=== PATIENT | female | born 1975 | race Caucasian/White ===

== ENCOUNTER 2017-05-14 09:25 | Inpatient (IN) | payer OTHER ==
--- NOTE | 2017-05-14 09:31 | PDOC ---
History of Present Illness - General Chief Complaint: Vomiting/Diarrhea Stated Complaint: N/V/D Time Seen by Provider: 05/14/17 09:27 History Source: Patient Exam Limitations: No Limitations - History of Present Illness Initial Comments: 05/14/17 09:30 This is a 42 yo F who presents to the ER with a complaint of nausea, vomiting, diarrhea Patient states she was brought into the emergency department due to lightheadedness, dizziness, weakness. Her symptoms began this past weekend. She states she was out with her children at a park, had several bug bites. 2 days ago, on Friday, she took Benadryl, and was given Claritin. She states this made her drowsy and she was unable to work, she went home early. Over the past 2 days she noticed that she is lightheaded and dizzy particularly when standing. She denies preceding chest pain, shortness of breath, palpitation. No focal weakness or numbness. No recent travel No ill contacts She reports vomiting, unable to tell me how many times, non bloody, non bilious , she vomits after attempting to eat or drink She reports diarrhea but is unable to tell me how many times/day (non bloody, non mucoid, she does state that she is not eating so it has not been that frequent) She denies recent antibiotic use The patient states she is able to tolerate water The patient denies fevers but notes night sweats PMH: anxiety, ?neck aneurysms, prior history of HTN (improved with weight loss) PSH: mandibular wires for [place] facial fracture Meds: ALL: PCN, Sulfa Social: Wine daily (1-3 glasses), denies drugs or tobacco, works at [employer] GENERAL/CONSTITUTIONAL: Yes: fatigue and weakness, loss of appetite No: fever, chills. HEAD, EYES, EARS, NOSE AND THROAT: No: change in vision, ear pain, discharge, sore throat, throat swelling. CARDIOVASCULAR: No: chest pain, lightheadedness, palpitations, syncope RESPIRATORY: No: cough, shortness of breath, wheezing, hemoptysis, stridor. GASTROINTESTINAL: Yes: nausea, vomiting, diarrhea No: abdominal pain, rectal bleeding, constipation. GENITOURINARY: No: dysuria, hematuria, frequency, urgency, flank pain. MUSCULOSKELETAL: No: back pain, neck pain, joint pain, muscle swelling or pain SKIN AND BREASTS: No: lesions, pallor, rash or easy bruising. NEUROLOGIC: No: headache, vertigo, paresthesias, weakness ENDOCRINE: No: unexplained weight gain or loss HEMATOLOGIC/LYMPHATIC: No: anemia, easy bleeding, swelling nodes. GENERAL: The patient is in no acute distress. HEAD: Normal with no signs of trauma. EYES: PERRLA, EOMI, sclera anicteric, conjunctiva clear. ENT: Ears normal, nares patent, oropharynx clear without exudates. Dry mucous membranes. NECK: Normal range of motion, supple without lymphadenopathy, JVD, or masses. LUNGS: Breath sounds equal, clear to auscultation bilaterally. No wheezes, and no crackles. HEART:Regular rate and rhythm, normal S1 and S2 without murmur, rub or gallop. ABDOMEN: Soft, nontender, normoactive bowel sounds. No guarding, no rebound. No masses palpable. EXTREMITIES: Normal range of motion, no edema. No clubbing or cyanosis. No erythema, or tenderness. NEUROLOGICAL: Cranial nerves II through XII grossly intact. Normal speech. No focal neurological deficits. MUSCULOSKELETAL: Back non-tender to palpation, no CVA tenderness SKIN: Warm, Dry, normal turgor, no rashes or lesions noted. 05/14/17 10:39 Past History - Past Medical History Allergies/Adverse Reactions: Allergies Allergy/AdvReac Type Severity Reaction Status Date / Time Penicillins Allergy Verified 05/14/17 09:27 Sulfa (Sulfonamide Allergy Verified 05/14/17 09:27 Antibiotics) Home Medications: Ambulatory Orders Clonazepam [Klonopin] 2 mg PO DAILY PRN 05/08/16 Psychiatric Problems: Yes (ANXIETY) - Suicide/Smoking/Psychosocial Hx Smoking History: Never smoked Hx Alcohol Use: No Drug/Substance Use Hx: No Substance Use Type: None ED Treatment Course - LABORATORY CBC & Chemistry Diagram: 05/14/17 09:37 05/14/17 09:47 Medical Decision Making - Medical Decision Making 05/14/17 10:46 Will do labs Will hydrate Will re assess 05/14/17 10:51 05/14/17 10:51 Laboratory Tests 05/14/17 05/14/17 05/14/17 09:37 09:47 09:47 WBC 2.4 L Hgb 14.1 Hct 42.3 Plt Count 228 MPV 6.2 L Neutrophils % (Manual) 36 L Band Neuts % (Manual) 2 Lymphocytes % (Manual) 48 H Monocytes % (Manual) 14 H Sodium 136 Potassium 3.5 Chloride 100 Carbon Dioxide 25 BUN 6 L Creatinine 0.6 Random Glucose 66 L AST 167 H ALT 109 H Serum , Qual Negative 05/14/17 10:53 ANC = 912 No prior labs available for evaluation Family history non contributory Pt has had decreased po intake due to decreased appetite - ? vitamin B12, folate deficiency Pt uses alcohol daily No history of known autoimmune disorders No h/o HIV Currently taking: Klonipin for anxiety, no other medications No recent illness 05/14/17 10:54 05/14/17 11:22 Laboratory Tests 05/14/17 05/14/17 09:47 10:47 Alkaline Phosphatase 79 Troponin I < 0.03 L 05/14/17 11:28 Labs reviewed with patient I have explained my concern that she her ANC is low and she has slight elevation in LFTs She is deciding on whether to stay or not *DC/Admit/Observation/Transfer Diagnosis at time of Disposition: Weakness - Discharge Dispostion Condition at time of disposition: Stable Admit: Yes
[2017-05-14 09:32] VITALS: BMI 17.2
[2017-05-14] MEDS ORDERED: SODIUM CHLORIDE 1,000 ML IV STA (09:32)
[2017-05-14 09:53] LABS: MCH 33.1 pg (25.7-33.7); MCHC 33.3 g/dl (32.0-36.0); MEAN CELL VOLUME 99.3 fl (80-96); MEAN PLT VOLUME 6.2 fl (7.5-11.1); PLATELET COUNT 228 K/MM3 (134-434); RDW 13.5 % (11.6-15.6); WHITE BLOOD COUNT 2.4 K/mm3 (4.0-10.8)
[2017-05-14 10:13] LABS: ALBUMIN 4.3 g/dl (3.5-5.0); ALK PHOS 79 U/L (32-92); ANION GAP 11 (8-16); BILIRUBIN,TOTAL 0.9 mg/dl (0.2-1.0); CALCIUM 9.1 mg/dl (8.4-10.2); CO2 25 mmol/L (22-28); CREATININE 0.6 mg/dl (0.6-1.3); GLUCOSE,RANDOM 66 mg/dl (74-106); SGOT/AST 167 U/L (10-42); SGPT/ALT 109 U/L (10-40); TOT PROT 7.4 g/dl (6.4-8.3)
[2017-05-14 10:37] LABS: PLATELET ESTIMATE ADEQUATE (NORMAL)
[2017-05-14 12:21] LABS: PH,URINE 5.5 (4.5-8); URINE APPEARANCE Clear; URINE BILIRUBIN Negative (NEGATIVE); URINE GLUCOSE (UA) Negative (NEGATIVE); URINE KETONE 2+ (NEGATIVE); URINE LEUK ESTERASE Negative (NEGATIVE); URINE NITRITE Negative (NEGATIVE); URINE PROTEIN Negative (NEGATIVE); URINE UROBILINOGEN 0.2 (0.2-1.0)
[2017-05-14 12:23] LABS: URINE BLOOD Trace-lysed (NEGATIVE); URINE COLOR YELLOW
[2017-05-14 12:24] LABS: URINE BACTERIA FEW /hpf (NEGATIVE); URINE RBC 0-3 /hpf (0-3); URINE WBC 0-3 (3-5)
--- NOTE | 2017-05-14 13:37 | HP ---
CHIEF COMPLAINT: nausea and vomiting PCP: "I don't have a doctor" HISTORY OF PRESENT ILLNESS: Patient is a 42 y/o female with a past medical history of anxiety. Patient reports lightheadedness, dizziness, and weakness for the past 2 days. She does reports on Friday, 05/12, she was in the park and noticed several insect bites to her lower extremities after returning home. Patient denies any fever. She does [place] Today she reports increased of dizziness with ambulating at home. Patient denies any syncopal episode. ER course was notable for: (1) wbc 2.4 neutrophils 36 manual anc 912 (2) ast/alt 167/109 (3) chest xray Recent Travel: denies any recent travel PAST MEDICAL HISTORY: anxiety, htn (no medications improved with weight loss) PAST SURGICAL HISTORY: surgical repair of [place] facial fracture Social History: , recently mother of 2 children, employed multimedia artist at [employer] Smoking: none Alcohol:drinks 1-3 glasses daily of wine Drugs: denies Family History: Allergies Penicillins Allergy (Verified 05/14/17 09:27) Sulfa (Sulfonamide Antibiotics) Allergy (Verified 05/14/17 09:27) HOME MEDICATIONS: Home Medications Medication Instructions Recorded Clonazepam [Klonopin] 2 mg PO DAILY PRN 05/08/16 REVIEW OF SYSTEMS CONSTITUTIONAL: present:loss of appetite Absent: fever, chills, diaphoresis, generalized weakness, malaise, weight change HEENT: Absent: rhinorrhea, nasal congestion, throat pain, throat swelling, difficulty swallowing, mouth swelling, ear pain, eye pain, visual changes CARDIOVASCULAR: Absent: chest pain, syncope, palpitations, irregular heart rate, lightheadedness , peripheral edema RESPIRATORY: Absent: cough, shortness of breath, dyspnea with exertion, orthopnea, wheezing, stridor, hemoptysis GASTROINTESTINAL: present: nausea, vomiting, diarrhea, Absent: abdominal pain, abdominal distension, constipation, melena, hematochezia GENITOURINARY: Absent: dysuria, frequency, urgency, hesitancy, hematuria, flank pain, genital pain MUSCULOSKELETAL: Absent: myalgia, arthralgia, joint swelling, back pain, neck pain SKIN: Absent: rash, itching, pallor HEMATOLOGIC/IMMUNOLOGIC: Absent: easy bleeding, easy bruising, lymphadenopathy, frequent infections ENDOCRINE: Absent: unexplained weight gain, unexplained weight loss, heat intolerance, cold intolerance NEUROLOGIC: Absent: headache, focal weakness or paresthesias, dizziness, unsteady gait, seizure, mental status changes, bladder or bowel incontinence PSYCHIATRIC: Absent: anxiety, depression, suicidal or homicidal ideation, hallucinations. PHYSICAL EXAMINATION Vital Signs - 24 hr 05/14/17 05/14/17 05/14/17 09:26 09:51 11:56 Temperature 98.7 F Pulse Rate 95 H Pulse Rate [ 95 H Apical] Respiratory 18 Rate Blood Pressure 138/100 138/100 Blood Pressure 124/87 [Right Arm] O2 Sat by Pulse 100 97 Oximetry (%) GENERAL: Awake, alert, and fully oriented, in no acute distress. HEAD: Normal with no signs of trauma. EYES: Pupils equal, round and reactive to light, extraocular movements intact, sclera anicteric, conjunctiva clear. No lid lag. EARS, NOSE, THROAT: Ears normal, nares patent, oropharynx clear without exudates. Moist mucous membranes. NECK: Normal range of motion, supple without lymphadenopathy, JVD, or masses. LUNGS: Breath sounds equal, clear to auscultation bilaterally. No wheezes, and no crackles. No accessory muscle use. HEART: Regular rate and rhythm, normal S1 and S2 without murmur, rub or gallop. ABDOMEN: Soft, nontender, not distended, normoactive bowel sounds, no guarding, no rebound, no masses. No hepatomegaly or splenomegaly. MUSCULOSKELETAL: Normal range of motion at all joints. No bony deformities or tenderness. No CVA tenderness. UPPER EXTREMITIES: 2+ pulses, warm, well-perfused. No cyanosis. No clubbing. No peripheral edema. LOWER EXTREMITIES: 2+ pulses, warm, well-perfused. No calf tenderness. No peripheral edema. NEUROLOGICAL: Cranial nerves II-XII intact. Normal speech. Normal gait. PSYCHIATRIC: Cooperative. Good eye contact. Appropriate mood and affect. SKIN: Warm, dry, normal turgor, no rashes or lesions noted, normal capillary refill. Laboratory Results - last 24 hr 05/14/17 05/14/17 05/14/17 09:37 09:47 09:47 WBC 2.4 L RBC 4.26 Hgb 14.1 Hct 42.3 MCV 99.3 H MCH 33.1 MCHC 33.3 RDW 13.5 Plt Count 228 MPV 6.2 L Neutrophils % No Result Required. Neutrophils % (Manual) 36 L Band Neuts % (Manual) 2 Lymphocytes % No Result Required. Lymphocytes % (Manual) 48 H Monocytes % (Manual) 14 H Platelet Estimate Adequate Sodium 136 Potassium 3.5 Chloride 100 Carbon Dioxide 25 Anion Gap 11 BUN 6 L Creatinine 0.6 Creat Clearance w eGFR > 60 Random Glucose 66 L Calcium 9.1 Total Bilirubin 0.9 AST 167 H ALT 109 H Alkaline Phosphatase 79 Troponin I Total Protein 7.4 Albumin 4.3 Lipase Serum , Qual Negative Urine Color Urine Appearance Urine pH Ur Specific [place] Urine Protein Urine Glucose (UA) Urine Ketones Urine Blood Urine Nitrite Urine Bilirubin Urine Urobilinogen Urine RBC Urine WBC Ur Epithelial Cells Urine Bacteria 05/14/17 05/14/17 05/14/17 09:47 10:47 12:03 WBC RBC Hgb Hct MCV MCH MCHC RDW Plt Count MPV Neutrophils % Neutrophils % (Manual) Band Neuts % (Manual) Lymphocytes % Lymphocytes % (Manual) Monocytes % (Manual) Platelet Estimate Sodium Potassium Chloride Carbon Dioxide Anion Gap BUN Creatinine Creat Clearance w eGFR Random Glucose Calcium Total Bilirubin AST ALT Alkaline Phosphatase Troponin I < 0.03 L Total Protein Albumin Lipase 41 Serum , Qual Urine Color Yellow Urine Appearance Clear Urine pH 5.5 Ur Specific [place] 1.025 Urine Protein Negative Urine Glucose (UA) Negative Urine Ketones 2+ H Urine Blood Trace-lysed H Urine Nitrite Negative Urine Bilirubin Negative Urine Urobilinogen 0.2 Urine RBC 0-3 Urine WBC 0-3 Ur Epithelial Cells Few Urine Bacteria Few ASSESSMENT/PLAN: F/E/N - full liquid diet - replete electrolytes ppx - pepcid - oob - scd dispo: requires observation admission Problem List - Problem (1) Neutropenia Assessment/Plan: - calculated anc 912, no fever noted, likely secondary to gastroenteritis - lymes titer and ehricholis ordered - repeat cbc in am - appreciate input of hematology Code(s): D70.9 - NEUTROPENIA, UNSPECIFIED Qualifiers: Neutropenia type: unspecified Qualified Code(s): D70.9 - Neutropenia , unspecified (2) Elevated liver enzymes Assessment/Plan: - transanimtis secondary to viral vs alcohol use - ultrasound of abdomen ordered - pending hepatitis and liver function panel Code(s): R74.8 - ABNORMAL LEVELS OF OTHER SERUM ENZYMES (3) Anxiety Assessment/Plan: - continue clonopin 2mg home dose, medication verified with environmental property assessor reference # [id number] Code(s): F41.9 - ANXIETY DISORDER, UNSPECIFIED (4) Dizziness Assessment/Plan: - secondary to hypovolemia, continue ivf - orthostatic vital signs Code(s): R42 - DIZZINESS AND GIDDINESS (5) Nausea & vomiting Assessment/Plan: - continue zofran as needed - benign abdominal exam, f/u abd ultrasound Code(s): R11.2 - NAUSEA WITH VOMITING, UNSPECIFIED (6) Alcohol abuse Assessment/Plan: - pt reports she drinkings 1-3 glasses of wine daily - monitor for signs of alcohol withdrawl. Code(s): F10.10 - ALCOHOL ABUSE, UNCOMPLICATED Visit type - Emergency Visit Emergency Visit: Yes ED Registration Date: 05/14/17 Care time: The patient presented to the Emergency Department on the above date and was hospitalized for further evaluation of their emergent condition. - New Patient This patient is new to me today: Yes Date on this admission: 05/14/17 - Critical Care Critical Care patient: No
[2017-05-14] MEDS ORDERED: D5-1/2NS+20 MEQ KCL - 1,000 ML IV SCH (14:00)
[2017-05-14] MEDS ORDERED: FAMOTIDINE 20 MG/50 ML IVPB 50 ML IVPB ONE (14:12)
[2017-05-14] MEDS: FAMOTIDINE 20 MG/50 ML IVPB 50 ML IVPB SCH ×2 (14:17→22:12)
[2017-05-14] MEDS ORDERED: LORazepam 2 MG/ML SDV VIAL ONE ×2 (14:51→17:28)
[2017-05-14] MEDS ORDERED: FOLIC ACID INJECTION - 1 MG, THIAMINE HCL 100 MG, MULTIVIT INJECTION ADULT 10 ML in SOD... IVPB ONE (15:15)
[2017-05-14] MEDS ORDERED: chlordiazePOXIDE HCL 25 MG CAPSULE PO ONE (17:22)
[2017-05-14] MEDS ORDERED: chlordiazePOXIDE HCL 25 MG CAPSULE PO PRN (17:57)
--- NOTE | 2017-05-14 18:08 | HOSP ---
Subjective - Review of Symptoms Events since last encounter: Received a call from CAMILLE Frausto reporting patient is tremulous and anxious. There is concern for alcohol and/or benzo withdrawal. Patient received ativan IVP 1mg in ED but symptoms persist. Ordered an additional 1mg dose of ativan and librium PO 50mg x 1. Also started patient on librium taper. Continue IV fluids. Physical Examination Vital Signs: Vital Signs Temperature 98.9 F 05/14/17 14:46 Pulse Rate 96 H 05/14/17 14:46 Respiratory Rate 18 05/14/17 14:46 Blood Pressure 142/87 05/14/17 14:46 O2 Sat by Pulse Oximetry (%) 98 05/14/17 14:46
[2017-05-14] MEDS ORDERED: SODIUM CHLORIDE 1,000 ML IV SCH (18:15)
--- NOTE | 2017-05-14 18:41 | EKG ---
Test Reason : Blood Pressure : / mmHG Vent. Rate : 103 BPM Atrial Rate : 103 BPM P-R Int : 148 ms QRS Dur : 074 ms QT Int : 354 ms P-R-T Axes : 058 095 080 degrees QTc Int : 463 ms SINUS TACHYCARDIA RIGHTWARD AXIS NO PREVIOUS ECGS AVAILABLE Confirmed by MD JOHN, NEO ([id number]) on 05/14/2017 6:40:32 PM Referred By: JACY MILNER Confirmed By:NEO LOPEZ MD
[2017-05-14] MEDS: chlordiazePOXIDE HCL 25 MG CAPSULE PO SCH (22:12)
[2017-05-15] MEDS: chlordiazePOXIDE HCL 25 MG CAPSULE PO SCH ×4 (06:02→22:12)
[2017-05-15 06:11] LABS: HEP B SURFACE AB Non Reactive (.)
[2017-05-15 09:24] LABS: BASOPHIL 1.1 % (0-2.0); EOSINOPHIL 1.9 % (0-4.5); MCH 34.1 pg (25.7-33.7); MCHC 34.7 g/dl (32.0-36.0); MEAN CELL VOLUME 98.2 fl (80-96); MEAN PLT VOLUME 6.6 fl (7.5-11.1); NEUTROPHILS 48.4 % (42.8-82.8); PLATELET COUNT 168 K/MM3 (134-434); RDW 12.8 % (11.6-15.6); WHITE BLOOD COUNT 2.9 K/mm3 (4.0-10.8)
[2017-05-15 09:45] LABS: ALBUMIN 3.3 g/dl (3.5-5.0); ALK PHOS 60 U/L (32-92); ANION GAP 6 (8-16); BILIRUBIN,TOTAL 0.8 mg/dl (0.2-1.0); CALCIUM 8.5 mg/dl (8.4-10.2); CO2 26 mmol/L (22-28); CREATININE 0.6 mg/dl (0.6-1.3); GLUCOSE,RANDOM 131 mg/dl (74-106); MAGNESIUM 1.5 mg/dL (1.8-2.4); PHOSPHOROUS 2.8 mg/dl (2.5-4.6); SGOT/AST 97 U/L (10-42); SGPT/ALT 71 U/L (10-40); TOT PROT 5.5 g/dl (6.4-8.3)
[2017-05-15] MEDS: FAMOTIDINE 20 MG/50 ML IVPB 50 ML IVPB SCH ×2 (09:51→21:38)
[2017-05-15] MEDS ORDERED: MAGNESIUM SULFATE 2 GM in SODIUM CHLORIDE 100 ML IVPB ONE (10:39)
[2017-05-15] MEDS: SODIUM CHLORIDE 0.45%/POT 1,000 ML IV SCH (11:14)
[2017-05-15] MEDS ORDERED: MAGNESIUM SULF 50% (8.12 MEQ/2 ML-1 GM VIAL) IVPB ONE (11:15)
--- NOTE | 2017-05-15 13:18 | PN ---
Physical Exam: SUBJECTIVE: Patient seen and examined, patient reports nausea with decreased denies any abdominal pain. OBJECTIVE:Patient is a 42 y/o female with a past medical history of anxiety. patient was admitted from the emergency department for neutropenia and alcohol withdrawal. Vital Signs Period Temp Pulse Resp BP Sys/[place] Pulse Ox Last 24 Hr 98.3 F-98.7 F 81-82 18-20 135-139/80-91 98-100 GENERAL: thin, patient is awake, alert, and fully oriented, in no acute distress. HEAD: Normal with no signs of trauma. EYES: PERRL, extraocular movements intact, sclera anicteric, conjunctiva clear. No ptosis. ENT: Ears normal, nares patent, oropharynx clear without exudates, moist mucous membranes. NECK: Trachea midline, full range of motion, supple. LUNGS: Breath sounds equal, clear to auscultation bilaterally, no wheezes, no crackles, no accessory muscle use. HEART: Regular rate and rhythm, S1, S2 without murmur, rub or gallop. ABDOMEN: Soft, nontender, nondistended, normoactive bowel sounds, no guarding, no rebound, no hepatosplenomegaly, no masses. EXTREMITIES: 2+ pulses, warm, well-perfused, no edema. fine hand tremors noted NEUROLOGICAL: Cranial nerves II through XII grossly intact. Normal speech, gait not observed. PSYCH: Normal mood, normal affect. SKIN: Warm, dry, normal turgor, no rashes or lesions noted Laboratory Results - last 24 hr 05/15/17 05/15/17 09:00 09:00 WBC 2.9 L RBC 3.68 Hgb 12.6 D Hct 36.2 MCV 98.2 H MCH 34.1 H MCHC 34.7 RDW 12.8 Plt Count 168 D MPV 6.6 L Neutrophils % 48.4 Lymphocytes % 33.7 Monocytes % 14.9 H Eosinophils % 1.9 Basophils % 1.1 Sodium 132 L Potassium 3.3 L Chloride 100 Carbon Dioxide 26 Anion Gap 6 L BUN < 4 L D Creatinine 0.6 Creat Clearance w eGFR > 60 Random Glucose 131 H D Calcium 8.5 Phosphorus 2.8 Magnesium 1.5 L Total Bilirubin 0.8 AST 97 H D ALT 71 H D Alkaline Phosphatase 60 D Total Protein 5.5 L D Albumin 3.3 L D Active Medications Generic Name Dose Route Start Last Admin Trade Name Freq PRN Reason Stop Dose Admin Chlordiazepoxide HCl 25 mg 05/14/17 17:57 Librium - PO 05/17/17 17:56 Q4H PRN WITHDRAWAL(CONT SUBST) Chlordiazepoxide HCl 50 mg 05/14/17 23:00 05/15/17 11:12 Librium - PO 05/15/17 17:01 50 mg [id number] COLTEN Administration Chlordiazepoxide HCl 25 mg 05/15/17 23:00 Librium - PO 05/16/17 17:01 [id number] COLTEN Chlordiazepoxide HCl 15 mg 05/16/17 23:00 Librium - PO 05/17/17 17:01 [id number] COLTEN Famotidine/Sodium Chloride 50 mls @ 100 mls/hr 05/14/17 13:45 05/15/17 09:51 Pepcid 20 Mg Premixed Ivpb - IVPB 100 mls/hr BID COLTEN Administration Potassium Chloride/Sodium Chloride 1,000 mls @ 75 mls/hr 05/15/17 10:45 11:14 1/2ns+20meq Kcl IV 75 mls/hr ASDIR COLTEN Administration Microbiology 05/14/17 12:03 Urine - Urine Clean Catch Urine Culture - Final NO GROWTH OBTAINED ASSESSMENT/PLAN: 1) heme neutropenia - calculated anc 1404, pt remains afebrile, likely secondary to tick borne disease vs alcohol abuse vs viral infection - pending HIV, lyme, babesia, ehrilica - hematology, Dr Murphy consulted and following - appreciate the input of Dr Haque, [place] 2) GI transaminitis - ast/alt trending downward - ultrasound of abdomen, fatty liver vs hepatocellular disease, no acute constance - pending hepatitis panel 3) psych alcohol abuse - reports drinking 1-3 glasses daily, tremolous on exam, continue librium protocol - appreciate input of Dr Branch, substance abuse anxiety - hold clonopin 2mg home dose, medication verified with communications analyst reference # [id number], while on librium F/E/N - full liquid diet - replete magnesium and potassium ppx - pepcid - oob - scd dispo: requires observation admission Problem List - Problems (1) Neutropenia Code(s): D70.9 - NEUTROPENIA, UNSPECIFIED Qualifiers: Neutropenia type: unspecified Qualified Code(s): D70.9 - Neutropenia , unspecified (2) Elevated liver enzymes Code(s): R74.8 - ABNORMAL LEVELS OF OTHER SERUM ENZYMES (3) Anxiety Code(s): F41.9 - ANXIETY DISORDER, UNSPECIFIED (4) Dizziness Code(s): R42 - DIZZINESS AND GIDDINESS (5) Nausea & vomiting Code(s): R11.2 - NAUSEA WITH VOMITING, UNSPECIFIED (6) Alcohol abuse Code(s): F10.10 - ALCOHOL ABUSE, UNCOMPLICATED Visit type - Emergency Visit Emergency Visit: Yes ED Registration Date: 05/15/17 Care time: The patient presented to the Emergency Department on the above date and was hospitalized for further evaluation of their emergent condition. - New Patient This patient is new to me today: No - Critical Care Critical Care patient: No - Discharge Referral Referred to [facility] No
[2017-05-15] MEDS ORDERED: POTASSIUM CHLORIDE TABS 20 MEQ TABLET.ER (FP) PO ONE (14:00)
--- NOTE | 2017-05-15 14:44 | CONSULT ---
Consult Detox [facility] Reason for Current Admission/Consult: Alcohol withdrawal sx. Referred by:: Liliana Granados NP - History History of Present Illness: 42 y/o woman with of alcohol dependence and one previous in-pt. treatment is admitted because of weakness,nausea,vomiting & diarrhea. - History Source History Provided By: Patient, Medical Record Limitations to Obtaining History: No Limitations - Alcohol/Substance Use Hx Alcohol Use: Yes - Current Drug/Alcohol Use Alcohol Route: Oral Frequency: 3-6 times per week Amount used: wine 1 bottle Date of Last Use: 05/13/17 - Past Medical History ...LMP: 05/07/17 ...: No - Significant Medical Findings: Laboratory Last Values WBC 2.9 K/mm3 (4.0-10.8) L 05/15/17 09:00 RBC 3.68 M/mm3 (3.60-5.2) 05/15/17 09:00 Hgb 12.6 GM/dl (10.7-15.3) D 05/15/17 09:00 Hct 36.2 % (32.4-45.2) 05/15/17 09:00 MCV 98.2 fl (80-96) H 05/15/17 09:00 MCH 34.1 pg (25.7-33.7) H 05/15/17 09:00 MCHC 34.7 g/dl (32.0-36.0) 05/15/17 09:00 RDW 12.8 % (11.6-15.6) 05/15/17 09:00 Plt Count 168 K/MM3 (134-434) D 05/15/17 09:00 MPV 6.6 fl (7.5-11.1) L 05/15/17 09:00 Neutrophils % 48.4 % (42.8-82.8) 05/15/17 09:00 Neutrophils % (Manual) 36 % (42.8-82.8) L 05/14/17 09:37 Band Neuts % (Manual) 2 % (0-10) 05/14/17 09:37 Lymphocytes % 33.7 % (8-40) 05/15/17 09:00 Lymphocytes % (Manual) 48 % (8-40) H 05/14/17 09:37 Monocytes % 14.9 % (3.8-10.2) H 05/15/17 09:00 Monocytes % (Manual) 14 % (3.8-10.2) H 05/14/17 09:37 Eosinophils % 1.9 % (0-4.5) 05/15/17 09:00 Basophils % 1.1 % (0-2.0) 05/15/17 09:00 Platelet Estimate Adequate (NORMAL) 05/14/17 09:37 Sodium 132 mmol/L (136-145) L 05/15/17 09:00 Potassium 3.3 mmol/L (3.5-5.1) L 05/15/17 09:00 Chloride 100 mmol/L (98-107) 05/15/17 09:00 Carbon Dioxide 26 mmol/L (22-28) 05/15/17 09:00 Anion Gap 6 (8-16) L 05/15/17 09:00 BUN < 4 mg/dl (7-18) L D 05/15/17 09:00 Creatinine 0.6 mg/dl (0.6-1.3) 05/15/17 09:00 Creat Clearance w eGFR > 60 (>60) 05/15/17 09:00 Random Glucose 131 mg/dl (74-106) H D 05/15/17 09:00 Calcium 8.5 mg/dl (8.4-10.2) 05/15/17 09:00 Phosphorus 2.8 mg/dl (2.5-4.6) 05/15/17 09:00 Magnesium 1.5 mg/dL (1.8-2.4) L 05/15/17 09:00 Total Bilirubin 0.8 mg/dl (0.2-1.0) 05/15/17 09:00 AST 97 U/L (10-42) H D 05/15/17 09:00 ALT 71 U/L (10-40) H D 05/15/17 09:00 Alkaline Phosphatase 60 U/L (32-92) D 05/15/17 09:00 Troponin I < 0.03 ng/ml (0.03-0.50) L 05/14/17 10:47 Total Protein 5.5 g/dl (6.4-8.3) L D 05/15/17 09:00 Albumin 3.3 g/dl (3.5-5.0) L D 05/15/17 09:00 Lipase 41 U/L (22-51) 05/14/17 09:47 Serum , Qual Negative 05/14/17 09:47 Urine Color Yellow 05/14/17 12:03 Urine Appearance Clear 05/14/17 12:03 Urine pH 5.5 (4.5-8) 05/14/17 12:03 Ur Specific [place] 1.025 (1.005-1.025) 05/14/17 12:03 Urine Protein Negative (NEGATIVE) 05/14/17 12:03 Urine Glucose (UA) Negative (NEGATIVE) 05/14/17 12:03 Urine Ketones 2+ (NEGATIVE) H 05/14/17 12:03 Urine Blood Trace-lysed (NEGATIVE) H 05/14/17 12:03 Urine Nitrite Negative (NEGATIVE) 05/14/17 12:03 Urine Bilirubin Negative (NEGATIVE) 05/14/17 12:03 Urine Urobilinogen 0.2 (0.2-1.0) 05/14/17 12:03 Urine RBC 0-3 /hpf (0-3) 05/14/17 12:03 Urine WBC 0-3 (3-5) 05/14/17 12:03 Ur Epithelial Cells Few /HPF 05/14/17 12:03 Urine Bacteria Few /hpf (NEGATIVE) 05/14/17 12:03 Hepatitis A Ab Total Negative (Negative) 05/14/17 09:37 Hep Bs Antigen Negative (Negative) 05/14/17 09:37 Hep Bs Antibody Non reactive (.) 05/14/17 09:37 Hep B Core Total Ab Negative (Negative) 05/14/17 09:37 labs noted CIWA Score - CIWA Score Nausea/Vomitin Muscle Tremors: 4-Moderate,w/Arms Extend Anxiety: 4-Mod. Anxious/Guarded Agitation: 3 Paroxysmal Sweats: 3 Orientation: 0-Oriented Tacttile Disturbances: 0-None Auditory Disturbances: 0-None Visual Disturbances: 0-None Headache: 0-None Present CIWA-Ar Total Score: 17 Assessment Plan - Diagnosis (1) Alcohol dependence with uncomplicated withdrawal Status: Acute - Plan Plan: Detox with librium and refer to IOP - Medication Detox Regimen/Protocol: Librium
[2017-05-15 15:23] LABS: BILIRUBIN,DIRECT 0.2 mg/dl (0.0-0.2)
[2017-05-15 15:38] LABS: HIV 1 & 2 AB NEGATIVE; HIV 1 AGp24 NEGATIVE
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
[2017-05-16] MEDS: chlordiazePOXIDE HCL 25 MG CAPSULE PO SCH ×2 (06:14→11:04)
[2017-05-16 06:23] VITALS: BP 135/90; PULSE 66; TEMP 98.1
[2017-05-16 08:07] LABS: BASOPHIL 1.8 % (0-2.0); EOSINOPHIL 4.3 % (0-4.5); MCH 33.2 pg (25.7-33.7); MCHC 33.2 g/dl (32.0-36.0); MEAN CELL VOLUME 99.9 fl (80-96); NEUTROPHILS 33.8 % (42.8-82.8); PLATELET COUNT 159 K/MM3 (134-434); RDW 12.6 % (11.6-15.6); WHITE BLOOD COUNT 2.7 K/mm3 (4.0-10.8)
[2017-05-16 08:33] LABS: ALBUMIN 3.5 g/dl (3.5-5.0); ALK PHOS 59 U/L (32-92); ANION GAP 6 (8-16); BILIRUBIN,TOTAL 0.9 mg/dl (0.2-1.0); CALCIUM 9.1 mg/dl (8.4-10.2); CO2 27 mmol/L (22-28); CREATININE 0.4 mg/dl (0.6-1.3); GLUCOSE,RANDOM 92 mg/dl (74-106); MAGNESIUM 1.9 mg/dL (1.8-2.4); PHOSPHOROUS 2.9 mg/dl (2.5-4.6); SGOT/AST 100 U/L (10-42); SGPT/ALT 68 U/L (10-40); TOT PROT 6.1 g/dl (6.4-8.3)
--- NOTE | 2017-05-16 09:32 | PN ---
Progress Note (short form) - Note Progress Note: ID Consult dictated Leukopenia, lymphocytosis/ monocytosis elevated LFTs after insect bites Suspect viral or tick-related illness ? 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
[2017-05-16] MEDS: FAMOTIDINE 20 MG/50 ML IVPB 50 ML IVPB SCH (10:08)
[2017-05-16] MEDS: SODIUM CHLORIDE 0.45%/POT 1,000 ML IV SCH (10:08)
--- NOTE | 2017-05-16 10:33 | CONS ---
DATE OF CONSULTATION: HISTORY: The patient is a 42-year-old female evaluated for leukopenia. She was admitted to the hospital on May 14, 2017 with a several-day history of nausea, vomiting, diarrhea, lightheadedness, dizziness, and generalized weakness. The patient states that she had been in the park with her children approximately 4-5 days prior to admission. She had suffered numbers insect bites, presumably mosquito bites. She did not remember picking off any ticks or developing any localized rash. She complained of subjective fever. No chills. She was admitted to the hospital where she was found to have leukopenic, neutropenic with elevated liver enzymes. She was seen in consultation by the detoxification service for possible alcohol withdrawal syndrome. She denies any high-grade fever or shaking chills, cough, sputum production, hemoptysis, dysuria, or hematuria. She denies any ill contacts. She has 2 young children who have been well without recent febrile illness or rash. She has had no recent travel. She works in a bank doing office work. PAST MEDICAL HISTORY: Positive for anxiety on Klonopin. ALLERGIES: PENICILLIN and SULFA. MEDICATIONS: At the present time include Librium, magnesium, Pepcid. SOCIAL HISTORY: She is . She lives at home with her 2 children, ages 10 and 12, who are healthy. Positive history of daily ETOH consumption. SYSTEMS REVIEW: Neurologic: No loss of consciousness, seizure activity, focal weakness. Cardiac: Negative chest pain or palpitations. Respiratory: Negative cough or sputum production. Gastrointestinal: As per HPI. Genitourinary: Negative for urinary tract infection. LABORATORY DATA: White count 2.7, neutrophils 33, lymphocytes 48, monocytes 12, eosinophils 4, hematocrit 39.5, platelet count 159, MCV 99, creatinine 0.4. Total bilirubin 0.9, alkaline phosphatase 59, AST 100, ALT 68. Urinalysis: 0-3 white cells. Chest x-ray negative. Lyme titer negative. HIV test negative. Babesia smear negative. Sonogram: Fatty liver. PHYSICAL EXAMINATION: General: She is chronically ill-appearing, tremulous. She is pale, thin. Not acutely toxic appearing. Vital Signs: Temperature 98.1, blood pressure 135/90, pulse 66 and regular, respirations 18 per minute. HEENT: Sclerae anicteric. Oropharynx negative. Neck: Supple. No palpable nodes. Heart: Sounds S1, S2. No murmur. Lungs: Clear. Abdomen: Soft. No palpable liver or spleen. Extremities: Negative for edema. There are excoriations present on the lower extremities bilaterally. IMPRESSION: Leukopenia, lymphocytosis, monocytosis, elevated liver enzymes after insect exposure, suspect viral or tick-related illness. Considerations include West Nile virus, Lyme, Anaplasma, and Babesia. Cannot rule out component of chronic leukopenia secondary to bone marrow suppression from alcohol. PLAN: Agree with workup obtaining Lyme titer, Anaplasma PCR, Babesia PCR, West Nile virus serology, HIV test, B12 and folate level. Observe off antibiotic therapy. Have referral for chemical dependency rehabilitation. Thank you for the kind referral. KAMARI RIVERA M.D. [id number]
--- NOTE | 2017-05-16 12:21 | DS ---
Physical Exam: SUBJECTIVE: Patient seen and examined, reports feeling better denies abdominal pain patient is tolerating OBJECTIVE: Patient is a 42 y/o female with a past medical history of anxiety. Patient reports lightheadedness, dizziness, and weakness for the past 2 days. She does reports on Friday, 05/12, she was in the park and noticed several insect bites to her lower extremities after returning home. Patient denies any fever. She does reports [place] in [place]. Today she reports increased of dizziness with ambulating at home. Patient denies any syncopal episode. ER course was notable for: (1) wbc 2.4 neutrophils 36 manual anc 912 (2) ast/alt 167/109 (3) chest xray Vital Signs Period Temp Pulse Resp BP Sys/Lincoln Pulse Ox Last 24 Hr 98.1 F-99.3 F 66-76 17-18 124-135/80-90 99-100 PHYSICAL EXAM GENERAL: thin, patient is awake, alert, and fully oriented, in no acute distress. HEAD: Normal with no signs of trauma. EYES: PERRL, extraocular movements intact, sclera anicteric, conjunctiva clear. No ptosis. ENT: Ears normal, nares patent, oropharynx clear without exudates, moist mucous membranes. NECK: Trachea midline, full range of motion, supple. LUNGS: Breath sounds equal, clear to auscultation bilaterally, no wheezes, no crackles, no accessory muscle use. HEART: Regular rate and rhythm, S1, S2 without murmur, rub or gallop. ABDOMEN: Soft, nontender, nondistended, normoactive bowel sounds, no guarding, no rebound, no hepatosplenomegaly, no masses. EXTREMITIES: 2+ pulses, warm, well-perfused, no edema. fine hand tremors noted NEUROLOGICAL: Cranial nerves II through XII grossly intact. Normal speech, gait not observed. PSYCH: Normal mood, normal affect. SKIN: Warm, dry, normal turgor, no rashes or lesions noted LABS Laboratory Results - last 24 hr 05/16/17 05/16/17 07:00 07:00 WBC 2.7 L RBC 3.96 Hgb 13.1 Hct 39.5 MCV 99.9 H MCH 33.2 MCHC 33.2 RDW 12.6 Plt Count 159 MPV 7.0 L Neutrophils % 33.8 L D Lymphocytes % 48.0 H D Monocytes % 12.1 H Eosinophils % 4.3 D Basophils % 1.8 Sodium 134 L Potassium 3.9 Chloride 101 Carbon Dioxide 27 Anion Gap 6 L BUN < 4 L Creatinine 0.4 L D Creat Clearance w eGFR > 60 Random Glucose 92 D Calcium 9.1 Phosphorus 2.9 Magnesium 1.9 D Total Bilirubin 0.9 AST 100 H ALT 68 H Alkaline Phosphatase 59 Total Protein 6.1 L Albumin 3.5 Laboratory Tests 05/14/17 05/14/17 05/15/17 09:37 12:00 13:45 Lyme Screen IgG & IgM <0.91 Hepatitis A Ab Total Negative Hep Bs Antigen Negative Hep Bs Antibody Non reactive Hep B Core Total Ab Negative HIV 1&2 Antibody Screen Negative HIV P24 Antigen Negative Microbiology 05/15/17 11:20 Blood - Peripheral Venous Blood Culture - Final NO GROWTH AFTER 5 DAYS INCUBATION 05/15/17 11:20 Blood - Peripheral Venous Blood Culture - Final NO GROWTH AFTER 5 DAYS INCUBATION 05/15/17 13:45 Blood - Peripheral Venous Blood Parasites Smear (PEGGY) - Final , negative 05/14/17 12:03 Urine - Urine Clean Catch Urine Culture - Final NO GROWTH OBTAINED HOSPITAL COURSE: Patient was admitted for neutropenia, calculated anc 1404, pt remained afebrile, likely secondary to tick borne disease vs alcohol abuse vs viral infection. Hematology, Dr Murphy consulted and following. Dr Haque, ID was consulted and followed. Blood cultures resulted as negative, lyme and ehrilicia are pending. Patient was noted to have transaminitis. AST/ALT trending downward, ultrasound of abdomen, fatty liver vs hepatocellular disease, no acute constance, hepatitis panel resulted as negative. patient reports drinking 1-3 glasses daily, tremolous on exam, she was placed on librium protocol. Dr Omkar Chowdary, substance abuse physician was consulted, patient has a past medical history of anxiety, clonopin 2mg home dose held while on klonopin, medication verified with [facility] reference # [id number]. Date of Admission:05/15/17 Date of Discharge: 05/16/17 Minutes to complete discharge: 45 Discharge Summary Reason For Visit: WEAKNESS Current Active Problems Alcohol abuse (Acute) Alcohol dependence with uncomplicated withdrawal (Acute) Anxiety (Acute) Dizziness (Acute) Elevated liver enzymes (Acute) Nausea & vomiting (Acute) Neutropenia (Acute) Weakness (Acute) Condition: Improved - Instructions Diet, Activity, Other Instructions: resume soft bland diet then advance diet as tolerated please follow up with Dr Murphy, hematology within 1 week if any new or persistent symptom develop please return to the emergency department Referrals: Marvin Murphy MD [Staff Physician] - 1 Week Krysta Rod MD [Staff Physician] - 2 Weeks Disposition: HOME - Home Medications Comprehensive Discharge Medication List: Ambulatory Orders Clonazepam [Klonopin] 2 mg PO DAILY PRN 05/08/16 Problem List - Problems (1) Neutropenia Code(s): D70.9 - NEUTROPENIA, UNSPECIFIED Qualifiers: Neutropenia type: unspecified Qualified Code(s): D70.9 - Neutropenia , unspecified (2) Elevated liver enzymes Code(s): R74.8 - ABNORMAL LEVELS OF OTHER SERUM ENZYMES (3) Anxiety Code(s): F41.9 - ANXIETY DISORDER, UNSPECIFIED (4) Dizziness Code(s): R42 - DIZZINESS AND GIDDINESS (5) Nausea & vomiting Code(s): R11.2 - NAUSEA WITH VOMITING, UNSPECIFIED (6) Alcohol abuse Code(s): F10.10 - ALCOHOL ABUSE, UNCOMPLICATED This patient is new to me today: No Emergency Visit: Yes ED Registration Date: 05/15/17 Care time: The patient presented to the Emergency Department on the above date and was hospitalized for further evaluation of their emergent condition. Critical Care patient: No - Discharge Referral Referred to [facility] Med [facility].C.: No
[2017-05-16 13:09] LABS: THYROID STIMULATING HORMONE 2.2 uIU/ml (0.358-3.74)
[2017-05-16] MEDS ORDERED: chlordiazePOXIDE 5 MG CAPSULE PO SCH (23:00)
== END 2017-05-16 13:50 | disposition home or self-care (01) | DRG 809 ==
LOC: FER 09:25 → FM/S 12:15 → UNDOADMOB 14:46 → OBSVTOIN 05-15 14:30 → INTOOBSV 05-15 14:30
PROVIDERS: ADMIT Internal Medicine; ATTEND Nurse Practitioner Family
DX: D70.9 Neutropenia, unspecified (principal); F10.230 Alcohol dependence with withdrawal, uncomplicated; R53.1 Weakness; F41.9 Anxiety disorder, unspecified; Z88.0 Allergy status to penicillin; Z88.2 Allergy status to sulfonamides; R42 Dizziness and giddiness; R74.0 Nonspecific elevation of levels of transaminase and lactic acid dehydrogenase [LDH]
CPT/HCPCS: 36415; 71020-TC; 76705-TC; 80053; 80076; 81003; 81015; 82607; 83690; 83735; 84100; 84436; 84443; 84484; 84703; 85025; 86618; 86704; 86706; 86708; 86753; 87040; 87086; 87207; 87340; 87389; 87798; 93005; 99283-25; G0378; J3480

== ENCOUNTER 2020-04-25 11:58 | Inpatient (IN) | payer OTHER ==
--- NOTE | 2020-04-25 12:02 | PDOC ---
History of Present Illness - General Chief Complaint: Weakness Stated Complaint: WEAKNESS ,ABDOMINAL PAIN VOMITING Time Seen by Provider: 04/25/20 12:02 - History of Present Illness Initial Comments: HPI: 45yo F with PMH of HTN, alcohol abuse presenting with weakness and abdominal pain/distention. Patient reports she has been feeling unwell for the past month such that she feels her legs are weak and has fallen on her knees multiple times. Since mid-March, patient has felt worsening abdominal pain and distantion. Took over the counter pepto bismol without relief of symptoms. The pain is rated 7-8/10 and diffuse. Patient also reports nausea and nonbloody bilious vomiting such that she is unable to tolerate any po intake, liquid or solid. Has had about 4-5 episodes of diarrhea daily. Quit drinking alcohol about six weeks ago. No fevers, chills, chest pain, or shortness of breath. PCP: Dr. Crawford ROS: Constitutional: no fever, no chills HEENT: no throat pain, no dysphagia Cardiovascular: no chest pain, no palpitations Respiratory: no cough, no shortness of breath Gastrointestinal: +abdominal pain, +nausea Genitourinary: no dysuria, no hematuria Musculoskeletal: no myalgia, +leg weakness Skin: no rash, no itching Neurologic: +lightheaded, +weakness Psych: no agitation, no anxiety PE: General: Awake, alert, and fully oriented, in no acute distress Head: No signs of trauma Eyes: EOMI, sclera anicteric ENT: Moist mucus membranes Neck: Normal ROM, supple Lungs: Lungs clear, Normal breath sounds Cardio: Regular rhythm, S1 and S2 present Abdomen: Distended and tympanic. Diffuse tenderness to palpation. no CVA t enderness. No guarding, no rebound, no masses Extremities: Normal range of motion, Distal pulses present Skin: Warm, Dry, normal turgor Neurologic: Cranial nerves II through XII grossly intact. Normal speech ED Course/MDM: DDX including but not limited to anemia, metabolic derangement, hepatitis, alcoholic ketoacidosis, pancreatitis, biliary colic, SBO, ACS Labs, EKG, CXR CTAP with IV contrast Fluids Simi Yarbrough 04/25/20 12:02 EKG: rate 103, Qtc 487, sinus CBC WBC 8.8 K/mm3 (4.0-10.8) 04/25/20 12:45 RBC 3.21 M/mm3 (3.60-5.2) L 04/25/20 12:45 Hgb 11.4 GM/dl (10.7-15.3) 04/25/20 12:45 Hct 34.8 % (32.4-45.2) 04/25/20 12:45 MCV 108.4 fl (80-96) H 04/25/20 12:45 MCH 35.4 pg (25.7-33.7) H 04/25/20 12:45 MCHC 32.7 g/dl (32.0-36.0) 04/25/20 12:45 RDW 14.1 % (11.6-15.6) D 04/25/20 12:45 Plt Count 272 K/MM3 (134-434) 04/25/20 12:45 MPV 7.7 fl (7.5-11.1) 04/25/20 12:45 Absolute Neuts (auto) 7.3 K/mm3 04/25/20 12:45 Neutrophils % 82.7 % (42.8-82.8) 04/25/20 12:45 Lymphocytes % 12.3 % (8-40) 04/25/20 12:45 Monocytes % 4.4 % (3.8-10.2) 04/25/20 12:45 Eosinophils % 0.1 % (0-4.5) 04/25/20 12:45 Basophils % 0.5 % (0-2.0) 04/25/20 12:45 No leukocytosis or anemia CMP Sodium 129 mmol/L (136-145) L 04/25/20 12:45 Potassium 3.7 mmol/L (3.5-5.1) 04/25/20 12:45 Chloride 89 mmol/L (98-107) L 04/25/20 12:45 Carbon Dioxide 20 mmol/L (21-32) L 04/25/20 12:45 Anion Gap 20 MMOL/L (8-16) H 04/25/20 12:45 BUN 5.0 mg/dl (7-18) L 04/25/20 12:45 Creatinine 0.5 mg/dl (0.55-1.3) L 04/25/20 12:45 Est GFR (CKD-EPI)AfAm 134.52 04/25/20 12:45 Est GFR (CKD-EPI)NonAf 116.07 04/25/20 12:45 Random Glucose 79 mg/dl (74-106) 04/25/20 12:45 Calcium 7.4 mg/dl (8.5-10) L 04/25/20 12:45 Phosphorus 2.7 mg/dl (2.5-4.9) 04/25/20 12:45 Magnesium 1.7 mg/dL (1.8-2.4) L 04/25/20 12:45 Total Bilirubin 2.8 mg/dl (0.2-1) H 04/25/20 12:45 AST 264 U/L (15-37) H 04/25/20 12:45 ALT 69 U/L (13-61) H 04/25/20 12:45 Alkaline Phosphatase 167 U/L (45-117) H 04/25/20 12:45 Creatine Kinase 31 U/L (26-192) 04/25/20 12:45 Troponin I < 0.03 ng/ml (0.00-0.05) 04/25/20 12:45 Total Protein 5.8 g/dl (6.4-8.2) L 04/25/20 12:45 Albumin 2.6 g/dl (3.4-5.0) L 04/25/20 12:45 Lipase 178 U/L (73-393) 04/25/20 12:45 Hyponatrema Elevated anion gap ALT and AST elevated ALP elevated Normal lipase Lactate and VBG ordered as labs with an elevated anion gap Pending CT report 04/25/20 14:[address] Negro, radiologist regarding CT scan. Patient has severe ascites, distended gallbladder, and fatty liver. Questionable cystic structure in the left adnexa. Discussed case with MAURO Crenshaw who accepted patient for admission. Pending attending physician name. COVID-19 swab ordered for admission 04/25/20 15:09 Past History - Medical History Allergies/Adverse Reactions: Allergies Allergy/AdvReac Type Severity Reaction Status Date / Time Penicillins Allergy Verified 04/25/20 12:05 Sulfa (Sulfonamide Allergy Verified 04/25/20 12:05 Antibiotics) Home Medications: Ambulatory Orders Metoprolol Succinate 50 mg PO DAILY 04/25/20 Amlodipine Besylate 5 mg PO DAILY 04/27/20 HTN: Yes Psychiatric Problems: Yes (ANXIETY) - Psycho-Social/Smoking History Smoking History: Never smoked Number of Cigarettes Smoked Daily: 5 'Breaking Loose' booklet given: 05/14/17 ED Treatment Course - LABORATORY CBC & Chemistry Diagram: 04/27/20 07:10 04/27/20 07:10 Discharge - Discharge Information Problems reviewed: Yes Clinical Impression/Diagnosis: Elevated liver enzymes, Ascites, Total bilirubin, elevated Condition: Guarded - Admission Yes - Follow up/Referral - Patient Discharge Instructions - Post Discharge Activity
--- NOTE | 2020-04-25 12:09 | PDOC ---
Attending Attestation - Resident Resident Name: Kellie Hoyos - ED Attending Attestation I have performed the following: I have examined & evaluated the patient, The case was reviewed & discussed with the resident, I agree w/resident's findings & plan, Exceptions are as noted - HPI HPI: 45 yo F history liver disease (elevated LFTs, possibly connected to alcohol use in the past- vague historian) presents with abdominal pain, N/V/D for the past 2 weeks. She states that she started out with poor appetite and pain, but has progressively worsened and is having difficulty keeping water down at this point. She has history of heavy alcohol use in the past, quit a few months ago. No recent fevers. No known sick contacts. Emesis is clear, nonbloody, nonbilious. - Physicial Exam PE: GENERAL: Awake, alert, and fully oriented. Appears chronically ill, thin, pale. HEAD: No signs of trauma EYES: PERRLA, EOMI, sclera anicteric, conjunctiva clear ENT: Auricles normal inspection, hearing grossly normal, nares patent, oropharynx clear without exudates. Dry mucosa NECK: Normal ROM, supple, no lymphadenopathy, JVD, or masses LUNGS: Breath sounds equal, clear to auscultation bilaterally. No wheezes, and no crackles HEART: Tachycardic with regular rhythm, normal S1 and S2, no murmurs, rubs or gallops ABDOMEN: Soft, +fluid distension, nontender, +hyperactive bowel sounds. No guarding, no rebound. No masses EXTREMITIES: Normal range of motion, no edema. No clubbing or cyanosis. No cords, erythema, or tenderness NEUROLOGICAL: Cranial nerves II through XII grossly intact. Normal speech, normal gait. Motor and sensation intact SKIN: Warm, dry, normal turgor, no rashes or lesions noted. - Medical Decision Making 04/25/20 13:58 Pt with elevated anion gap, unclear etiology. Will send lactate, vbg. Will obtain CT based on diffuse pain. Likely admission as she is ill-appearing and has multiple electrolyte abnormalities. Discharge - Discharge Information Problems reviewed: Yes Clinical Impression/Diagnosis: Elevated liver enzymes, Ascites, Total bilirubin, elevated Condition: Guarded - Follow up/Referral Referrals: Rainer Crawford [Primary Care Provider] - - Patient Discharge Instructions - Post Discharge Activity
[2020-04-25] MEDS ORDERED: ONDANSETRON 4 MG/2 ML VIAL IVPUSH ONE (12:32)
[2020-04-25] MEDS ORDERED: SODIUM CHLORIDE 1,000 ML IV STA (12:32)
[2020-04-25] MEDS ORDERED: ONDANSETRON 4 MG/2 ML VIAL ONE (12:53)
[2020-04-25] MEDS ORDERED: FAMOTIDINE 20 MG/50 ML IVPB 20 MG/50 ML MG IVPB ONE ×2 (13:06→13:40)
[2020-04-25 13:11] LABS: BASO % 0.5 % (0-2.0); EOS % 0.1 % (0-4.5); HEMATOCRIT 34.8 % (32.4-45.2); HEMOGLOBIN 11.4 GM/dl (10.7-15.3); LYMPH % 12.3 % (8-40); MCH 35.4 pg (25.7-33.7); MCHC 32.7 g/dl (32.0-36.0); MEAN CELL VOLUME 108.4 fl (80-96); MEAN PLT VOLUME 7.7 fl (7.5-11.1); MONO % 4.4 % (3.8-10.2); NEUT % 82.7 % (42.8-82.8); PLATELET COUNT 272 K/MM3 (134-434); RBC 3.21 M/mm3 (3.60-5.2); RDW 14.1 % (11.6-15.6); WHITE BLOOD COUNT 8.8 K/mm3 (4.0-10.8)
[2020-04-25 13:13] LABS: ACTIVATED PTT 27.7 SECONDS (25.2-36.5)
[2020-04-25 13:17] LABS: INR 1.27 (0.82-1.09); PROTHROMBIN TIME (PATIENT) 14.1 SEC (10.2-13.0)
[2020-04-25 13:18] LABS: MAGNESIUM 1.7 mg/dL (1.8-2.4); PHOSPHOROUS 2.7 mg/dl (2.5-4.9)
[2020-04-25 13:19] LABS: ALBUMIN 2.6 g/dl (3.4-5.0); BILIRUBIN,TOTAL 2.8 mg/dl (0.2-1); CALCIUM 7.4 mg/dl (8.5-10); CREATININE 0.5 mg/dl (0.55-1.3); POTASSIUM 3.7 mmol/L (3.5-5.1); TOT PROT 5.8 g/dl (6.4-8.2)
--- NOTE | 2020-04-25 15:01 | HP ---
CHIEF COMPLAINT: Abdominal pain PCP: Dr. Crawford ([facility]) - wants new PCP HISTORY OF PRESENT ILLNESS: This is an otherwise healthy 45-year-old female who presented to the ED today complaining of weakness resulting in multiple falls, abdominal pain, vomiting, abdominal distention, and diarrhea. She has been having these symptoms for about 3 weeks, but was prompted to present today because she is no longer able to tolerate PO (including water). She reports achy abdominal pain, worst in the epigastrium and LUQ. She has diarrhea every time she attempts to take PO - it is non-bloody. She reports vomiting repeatedly today. She denies fevers/chills and sick contacts. She denies jaundice. She traveled to [place] just prior to onset of symptoms, and reports eating cooked seafood there. She has been notified of abnormal LFTs in the past, but has not had this worked up. ER course was notable for: (1) Abnormal LFTs: TBili 2.8, AST/ALT/Alk Phos 264/69/167, INR 1.27 (2) CTAP: Hepatomegaly with diffuse steatosis. Gallbladder wall polyp. Large volume ascites. Irregular left adnexal structure 2.0 x 2.8cm. (3) Lactic acid pending - AG is 20 (4) Tachycardic 110-126, normotensive Recent Travel: PAST MEDICAL HISTORY: PAST SURGICAL HISTORY: Family history: Father alive, has CAD and HTN. Mother alive, has arthritis. Brother alive, has HTN. Social History: Working at home for [employer]. Smoking: None Alcohol: "Used to drink too much" (~3 glasses wine daily), stopped about 6 weeks ago Drugs: None Allergies: PCN and Sulfa (rash as a young child for both) Penicillins Allergy (Verified 04/25/20 12:05) Sulfa (Sulfonamide Antibiotics) Allergy (Verified 04/25/20 12:05) Health maintenance: No recent pap. HOME MEDICATIONS: Home Medications Medication Instructions Recorded Metoprolol Succinate 50 mg PO DAILY 04/25/20 REVIEW OF SYSTEMS CONSTITUTIONAL: Generalized weakness, malaise, unintentional 5 lb weight loss 1 month Absent: fever, chills, diaphoresis HEENT: Absent: rhinorrhea, nasal congestion, throat pain, throat swelling, difficulty swallowing, mouth swelling, ear pain, eye pain, visual changes CARDIOVASCULAR: Absent: chest pain, syncope, palpitations, irregular heart rate, lightheadedness, peripheral edema RESPIRATORY: Dyspnea on exertion Absent: cough, wheezing, stridor, hemoptysis GASTROINTESTINAL: see HPI GENITOURINARY: Absent: dysuria, frequency, urgency, hesitancy, hematuria, flank pain, genital pain. No menstrual period x 3 months. MUSCULOSKELETAL: Absent: myalgia, arthralgia, joint swelling, back pain, neck pain SKIN: Absent: rash, itching, pallor HEMATOLOGIC/IMMUNOLOGIC: Absent: easy bleeding, easy bruising, lymphadenopathy, frequent infections ENDOCRINE: Absent: unexplained weight gain, heat intolerance, cold intolerance NEUROLOGIC: Absent: headache, focal weakness or paresthesias, dizziness, unsteady gait, seizure, mental status changes, bladder or bowel incontinence PSYCHIATRIC: Absent: anxiety, depression, suicidal or homicidal ideation, hallucinations. PHYSICAL EXAMINATION Vital Signs - 24 hr 04/25/20 04/25/20 12:01 13:45 Temperature 99.6 F Pulse Rate 126 H Pulse Rate [ 110 H Right Radial] Respiratory 20 16 Rate Blood Pressure 138/76 Blood Pressure 114/83 [Right Arm] O2 Sat by Pulse 99 98 Oximetry (%) GENERAL: Awake, alert, and fully oriented, in no acute distress. HEAD: Normal with no signs of trauma. EYES: Pupils equal, round and reactive to light, extraocular movements intact, sclera anicteric, conjunctiva clear. No lid lag. EARS, NOSE, THROAT: Ears normal, nares patent, oropharynx clear without exudates. Moist mucous membranes. NECK: Normal range of motion, supple without lymphadenopathy, JVD, or masses. LUNGS: Breath sounds equal, clear to auscultation bilaterally. No wheezes, and no crackles. No accessory muscle use. HEART: Regular rate and rhythm, normal S1 and S2 without murmur, rub or gallop. ABDOMEN: Distended with fluid wave. Tender to palpation generally, most notably in LUQ. MUSCULOSKELETAL: Normal range of motion at all joints. No bony deformities or tenderness. No CVA tenderness. UPPER EXTREMITIES: 2+ pulses, warm, well-perfused. No cyanosis. No clubbing. No peripheral edema. LOWER EXTREMITIES: 2+ pulses, warm, well-perfused. No calf tenderness. No peripheral edema. NEUROLOGICAL: Cranial nerves II-XII intact. Normal speech. Normal gait. PSYCHIATRIC: Cooperative. Good eye contact. Appropriate mood and affect. SKIN: Warm, dry, normal turgor, no rashes or lesions noted, normal capillary refill. Laboratory Results - last 24 hr 04/25/20 04/25/20 04/25/20 12:45 12:45 12:45 WBC 8.8 RBC 3.21 L Hgb 11.4 Hct 34.8 MCV 108.4 H MCH 35.4 H MCHC 32.7 RDW 14.1 D Plt Count 272 MPV 7.7 Absolute Neuts (auto) 7.3 Neutrophils % 82.7 Lymphocytes % 12.3 Monocytes % 4.4 Eosinophils % 0.1 Basophils % 0.5 PT with INR 14.1 H INR 1.27 H PTT (Actin FS) 27.7 Sodium 129 L Potassium 3.7 Chloride 89 L Carbon Dioxide 20 L Anion Gap 20 H BUN 5.0 L Creatinine 0.5 L Est GFR (CKD-EPI)AfAm 134.52 Est GFR (CKD-EPI)NonAf 116.07 Random Glucose 79 Calcium 7.4 L Phosphorus Magnesium Total Bilirubin 2.8 H AST 264 H ALT 69 H Alkaline Phosphatase 167 H Creatine Kinase Troponin I Total Protein 5.8 L Albumin 2.6 L Lipase 178 04/25/20 04/25/20 12:45 12:45 WBC RBC Hgb Hct MCV MCH MCHC RDW Plt Count MPV Absolute Neuts (auto) Neutrophils % Lymphocytes % Monocytes % Eosinophils % Basophils % PT with INR INR PTT (Actin FS) Sodium Potassium Chloride Carbon Dioxide Anion Gap BUN Creatinine Est GFR (CKD-EPI)AfAm Est GFR (CKD-EPI)NonAf Random Glucose Calcium Phosphorus 2.7 Magnesium 1.7 L Total Bilirubin AST ALT Alkaline Phosphatase Creatine Kinase 31 Troponin I < 0.03 Total Protein Albumin Lipase ASSESSMENT/PLAN: 45-year-old female with progressive abdominal pain and distention, vomiting/diarrhea, and weakness resulting in falls. Family Medical History Family History: As Documented Problem List - Problem (1) Abdominal pain Assessment/Plan: -Associated with abnormal LFTs, ascites -Follow up lactic acid, hepatitis panel -Obtain pelvic ultrasound to better evaluate left adnexal structure -May require diagnostic and therapeutic paracentesis -Morphine 2mg IVP q4h prn pain -Zofran 4mg q6h prn nausea -IVF -GI evaluation requested Code(s): R10.9 - UNSPECIFIED ABDOMINAL PAIN (2) Tachycardia Assessment/Plan: -Suspect secondary to hypovolemia -No other SIRS criteria are present; patient has been normotensive -NS 100 mLs/hr Code(s): R00.0 - TACHYCARDIA, UNSPECIFIED (3) Hyponatremia Assessment/Plan: -Suspect hypovolemic -NS as above, follow - repeat BMP 7pm Code(s): E87.1 - HYPO-OSMOLALITY AND HYPONATREMIA (4) Weakness Assessment/Plan: -Fall precautions -PT eval Code(s): R53.1 - WEAKNESS (5) DVT prophylaxis Assessment/Plan: -Moderate risk -SCDs -Sqh (can change to Lovenox if no procedures e.g. paracentesis planned) Code(s): Z29.9 - ENCOUNTER FOR PROPHYLACTIC MEASURES, UNSPECIFIED Visit type - Emergency Visit Emergency Visit: Yes Care time: The patient presented to the Emergency Department on the above date and was hospitalized for further evaluation of their emergent condition. - New Patient This patient is new to me today: Yes Date on this admission: 04/25/20 - Critical Care Critical Care patient: No
[2020-04-25 16:19] LABS: VENOUS BASE EXCESS 0.1 mmol/L (-2-2); VENOUS O2 SATURATION 94.1 % (70-80); VENOUS PCO2 30.6 mmHg (38-52); VENOUS PH 7.482 (7.310-7.410)
[2020-04-25] MEDS: SODIUM CHLORIDE 1,000 ML IV SCH (16:30)
[2020-04-25] MEDS: ONDANSETRON 4 MG/2 ML VIAL IVPUSH PRN (18:10)
[2020-04-25 20:09] LABS: HCG,QUALITATIVE URINE Negative
[2020-04-25] MEDS: HEPARIN NA (PORCINE) 5,000 UNITS/ML 1ML VIAL SQ SCH (21:30)
[2020-04-25] MEDS: MORPHINE SULFATE 2 MG/ML VIAL IVPUSH PRN (21:49)
[2020-04-26] MEDS: MORPHINE SULFATE 2 MG/ML VIAL IVPUSH PRN ×5 (05:54→23:49)
[2020-04-26] MEDS: HEPARIN NA (PORCINE) 5,000 UNITS/ML 1ML VIAL SQ SCH ×3 (06:07→21:32)
[2020-04-26 08:35] LABS: INR 1.46 (0.82-1.09); PROTHROMBIN TIME (PATIENT) 16.2 SEC (10.2-13.0)
[2020-04-26 08:39] LABS: BASO % 0.5 % (0-2.0); EOS % 2.1 % (0-4.5); HEMATOCRIT 32.2 % (32.4-45.2); MCH 36.6 pg (25.7-33.7); MCHC 34.3 g/dl (32.0-36.0); MEAN CELL VOLUME 106.8 fl (80-96); MEAN PLT VOLUME 7.6 fl (7.5-11.1); MONO % 5.1 % (3.8-10.2); NEUT % 74.3 % (42.8-82.8); PLATELET COUNT 227 K/MM3 (134-434); RBC 3.01 M/mm3 (3.60-5.2); RDW 13.3 % (11.6-15.6); WHITE BLOOD COUNT 7.6 K/mm3 (4.0-10.8)
[2020-04-26 08:43] LABS: ALBUMIN 2.3 g/dl (3.4-5.0); BILIRUBIN,TOTAL 3.1 mg/dl (0.2-1); CREATININE 0.3 mg/dl (0.55-1.3); MAGNESIUM 1.6 mg/dL (1.8-2.4); POTASSIUM 3.2 mmol/L (3.5-5.1); TOT PROT 5.1 g/dl (6.4-8.2)
[2020-04-26 08:55] LABS: CALCIUM 6.7 mg/dl (8.5-10)
--- NOTE | 2020-04-26 09:28 | EKG ---
Test Reason : Blood Pressure : / mmHG Vent. Rate : 103 BPM Atrial Rate : 103 BPM P-R Int : 134 ms QRS Dur : 076 ms QT Int : 372 ms P-R-T Axes : 057 089 070 degrees QTc Int : 487 ms SINUS TACHYCARDIA LEFT ATRIAL ENLARGEMENT PROLONGED QT INFERIOR INFARCT ,unknown duration ABNORMAL ECG Confirmed by MD MATHEW, GUANAKITO ([id number]) on 04/26/2020 9:27:27 AM Referred By: DIONI HOLLNAD Confirmed By:GUANAKITO CARMONA MD
[2020-04-26] MEDS ORDERED: KCL 10 MEQ IVPB 10 MEQ/100 ML INFUS.BAG IVPB SCH (09:30)
[2020-04-26] MEDS: PANTOPRAZOLE SODIUM 40 MG VIAL IVPUSH SCH (09:57)
[2020-04-26] MEDS ORDERED: CALCIUM GLUCONATE 10% - 1,000 MG/10 ML VIAL IVPB ONE (10:00)
[2020-04-26] MEDS: KCL 10 MEQ IVPB 10 MEQ/100 ML INFUS.BAG IVPB SCH ×3 (10:05→15:11)
[2020-04-26] MEDS: CEFTRIAXONE 1 GM in DEXTROSE 5%-WATER - 50 ML IVPB SCH (10:30)
[2020-04-26] MEDS ORDERED: MAGNESIUM SULF 50% (8.12 MEQ/2 ML-1 GM VIAL) IVPB ONE (10:36)
--- NOTE | 2020-04-26 11:00 | PN ---
Progress Note (short form) - Note Progress Note: Patient seen and chart/labs reviewed with consult to be dictated. Patient with long history of ETOH abuse (1 bottle or white wine on most days). Has several week history of increasing abdominal girth/ascites and mild abdominal pain. Labs notable for elevation of AST>ALT c/w alcoholic hepatitis CT scan shows ascites and fatty liver Patient feels better today and denies any withdrawal symptoms. Will likely improve with avoidance of alcohol and on low sodium diet (no need for paracentesis at present) Would advance diet and have visitor services technician become involved - patient willing to consider ETOH-related support group/program. Follow LFTs and monitor daily weights.
[2020-04-26] MEDS: CYANOCOBALAMIN (VITAMIN B-12) 1000 MCG/1 ML VIAL IM SCH (11:14)
[2020-04-26] MEDS ORDERED: MAGNESIUM SULFATE IN WATER 2 GM/50 ML IVPB IVPB ONE (11:30)
[2020-04-26] MEDS: ONDANSETRON 4 MG/2 ML VIAL IVPUSH PRN (11:36)
[2020-04-26] MEDS: THIAMINE HCL 200 MG/2 ML VIAL IVPB SCH (13:16)
[2020-04-26] MEDS ORDERED: POTASSIUM CHLORIDE TABS 20 MEQ TABLET.ER (FP) PO ONE (14:45)
--- NOTE | 2020-04-26 15:45 | CONS ---
DATE OF CONSULTATION: CHIEF COMPLAINT: Asked to evaluate this 45-year-old female admitted with weakness, abdominal distention and swelling, and a CAT scan showing ascites. HISTORY OF PRESENT ILLNESS: The patient has a long history of alcohol abuse, drinking up to a bottle of white wine daily for over 20 years. She has had 1-month history of increased abdominal distention and discomfort, with some associated mild pain. She has not noted any lower extremity swelling. She has not noted any dark-colored urine or jaundice. She has no prior history of hepatitis or pancreatitis. She does admit to the long alcohol use history. The patient was admitted with the aforementioned complaints, and a CAT scan of the abdomen and pelvis showed evidence of ascites as well as a fatty liver. Her blood tests included an ALT level of 189, AST of 53, with an alkaline phosphatase of 140 and a total bilirubin of 3.1. Her INR was 1.25, and her CBC included a white count of 8.8, hemoglobin 11.4, with an MCV of 108.4 and a platelet count of 272,000. The patient has been treated with IV fluids and close monitoring. She has not had any evidence of alcohol withdrawal. She denies having any history of alcohol withdrawal or DTs in the past. PHYSICAL EXAMINATION: She is a well-developed, well-nourished female, alert and oriented, with pink conjunctiva. Grossly clear lungs; a regular rate and rhythm on cardiac exam; and a soft, moderately distended abdomen with slight dullness on percussion in the flanks. There is no palpable hepatosplenomegaly and nonspecific minimal discomfort to deep palpation. There was no lower extremity edema. Patient likely with alcoholic hepatitis as well as evidence of alcoholic liver disease on CAT scan. She has ascites suggestive of the alcoholic hepatitis and liver disease and may have some degree of portal hypertension. In addition, she has an abnormal CBC including macrocytic indices also consistent with chronic alcohol use. At the present time would encourage proper nutritional support with a low sodium diet. No indication for immediate paracentesis, and will follow clinically. Would suggest executive secretary social welfare become involved regarding either placement and/or supportive services post discharge. Patient counseled on the importance of avoiding alcohol in the future. Will follow. SHAILESH PETERS M.D. PELON/[id number]
[2020-04-26] MEDS: SODIUM CHLORIDE 1,000 ML IV SCH (17:15)
[2020-04-27] MEDS: MORPHINE SULFATE 2 MG/ML VIAL IVPUSH PRN ×2 (04:46→09:17)
[2020-04-27] MEDS: SODIUM CHLORIDE 1,000 ML IV SCH (04:46)
[2020-04-27] MEDS ORDERED: POLYETHYLENE GLYCOL 3350 119 GM BTL PO ONE (05:00)
[2020-04-27] MEDS: HEPARIN NA (PORCINE) 5,000 UNITS/ML 1ML VIAL SQ SCH ×3 (05:06→21:07)
[2020-04-27 08:24] LABS: IRON SERUM 72 ug/dL (50-175)
[2020-04-27 08:49] LABS: BASO % 0.5 % (0-2.0); EOS % 2.5 % (0-4.5); HEMATOCRIT 32.5 % (32.4-45.2); HEMOGLOBIN 10.9 GM/dL (10.7-15.3); LYMPH % 18.7 % (8-40); MCHC 33.6 g/dl (32.0-36.0); MEAN CELL VOLUME 106.9 fl (80-96); MEAN PLT VOLUME 7.9 fl (7.5-11.1); MONO % 3.9 % (3.8-10.2); NEUT % 74.4 % (42.8-82.8); PLATELET COUNT 164 K/MM3 (134-434); RBC 3.04 M/mm3 (3.60-5.2); RDW 13.8 % (11.6-15.6); WHITE BLOOD COUNT 7.8 K/mm3 (4.0-10.0)
[2020-04-27 08:56] LABS: ALK PHOS 156 U/L (45-117)
[2020-04-27] MEDS ORDERED: cefTRIAXone SODIUM 1 GM VIAL ONE (09:10)
[2020-04-27] MEDS ORDERED: DEXTROSE 5%-WATER - 50 ML IVPB ONE (09:11)
[2020-04-27] MEDS: CEFTRIAXONE 1 GM in DEXTROSE 5%-WATER - 50 ML IVPB SCH (09:19)
[2020-04-27] MEDS: PANTOPRAZOLE SODIUM 40 MG VIAL IVPUSH SCH (09:19)
[2020-04-27] MEDS: CYANOCOBALAMIN (VITAMIN B-12) 1000 MCG/1 ML VIAL IM SCH (09:20)
[2020-04-27] MEDS: THIAMINE HCL 200 MG/2 ML VIAL IVPB SCH (10:10)
[2020-04-27 10:46] LABS: ANISOCYTOSIS 1+; MACROCYTOSIS 1+; PLATELET ESTIMATE NORMAL
[2020-04-27 10:51] LABS: ALBUMIN 2.3 g/dl (3.4-5.0); ANION GAP 8 MMOL/L (8-16); BILIRUBIN,DIRECT 1.8 mg/dL (0.0-0.2); BILIRUBIN,TOTAL 2.7 mg/dL (0.2-1); CALCIUM 7.5 mg/dL (8.5-10.1); CHLORIDE 101 mmol/L (98-107); CO2 26 mmol/L (21-32); CREATININE 0.3 mg/dL (0.55-1.3); GLUCOSE,RANDOM 75 mg/dL (74-106); POTASSIUM 3.5 mmol/L (3.5-5.1); SGOT/AST 205 U/L (15-37); SGPT/ALT 54 U/L (13-61); SODIUM 135 mmol/L (136-145); TOT PROT 5.3 g/dl (6.4-8.2)
--- NOTE | 2020-04-27 11:29 | PN ---
Teaching Attending Note Name of Resident: Veronica oKo ATTENDING PHYSICIAN STATEMENT I saw and evaluated the patient. I reviewed the resident's note and discussed the case with the resident. I agree with the resident's findings and plan as documented. SUBJECTIVE: pt seen and examined OBJECTIVE: Last Vital Signs Temp Pulse Resp BP Pulse Ox 98.2 F 110 H 20 110/80 95 04/27/20 09:00 04/27/20 09:00 04/27/20 09:00 04/27/20 09:00 04/27/20 09:00 GENERAL: Awake, alert, and fully oriented, in no acute distress. HEAD: AT/NC, Extensive dandruff noted, seborrheic dermatitis EYES: Pupils equal, round and reactive to light, sclera anicteric, conjunctiva clear. LUNGS: Breath sounds equal, clear to auscultation bilaterally. No wheezes, and no crackles. No accessory muscle use. HEART: Regular rate and rhythm, normal S1 and S2, 2/6 systolic murmur at LSB ABDOMEN: Soft, minimally tender thoughout, mod distension, no fluid wave appreciated due to guarding. spider angiomata LOWER EXTREMITIES: 2+ pulses, warm, well-perfused. No calf tenderness. No peripheral edema. NEUROLOGICAL: Cranial nerves II-XII intact. Normal speech. CBCD WBC 7.8 K/mm3 (4.0-10.0) 04/27/20 07:10 RBC 3.04 M/mm3 (3.60-5.2) L 04/27/20 07:10 Hgb 10.9 GM/dL (10.7-15.3) 04/27/20 07:10 Hct 32.5 % (32.4-45.2) 04/27/20 07:10 MCV 106.9 fl (80-96) H 04/27/20 07:10 MCHC 33.6 g/dl (32.0-36.0) 04/27/20 07:10 RDW 13.8 % (11.6-15.6) 04/27/20 07:10 Plt Count 164 K/MM3 (134-434) 04/27/20 07:10 MPV 7.9 fl (7.5-11.1) 04/27/20 07:10 CMP Sodium 135 mmol/L (136-145) L 04/27/20 07:10 Potassium 3.5 mmol/L (3.5-5.1) 04/27/20 07:10 Chloride 101 mmol/L (98-107) 04/27/20 07:10 Carbon Dioxide 26 mmol/L (21-32) 04/27/20 07:10 Anion Gap 8 MMOL/L (8-16) 04/27/20 07:10 BUN < 1.0 mg/dL (7-18) L* 04/27/20 07:10 Creatinine 0.3 mg/dL (0.55-1.3) L 04/27/20 07:10 Calcium 7.5 mg/dL (8.5-10.1) L 04/27/20 07:10 Total Bilirubin 2.7 mg/dL (0.2-1) H 04/27/20 07:10 AST 205 U/L (15-37) H 04/27/20 07:10 ALT 54 U/L (13-61) 04/27/20 07:10 Alkaline Phosphatase 156 U/L (45-117) H 04/27/20 07:10 Total Protein 5.3 g/dl (6.4-8.2) L 04/27/20 07:10 Albumin 2.3 g/dl (3.4-5.0) L 04/27/20 07:10 Active Medications Acetaminophen (Tylenol -) 650 mg PO Q6H PRN PRN Reason: Fever Cyanocobalamin (Vitamin B12 Injection -) 1,000 mcg IM DAILY [facility] Last Admin: 04/27/20 09:20 Dose: 1,000 mcg Documented by: Heparin Sodium (Porcine) (Heparin -) 5,000 unit SQ TID [facility] Last Admin: 04/27/20 05:06 Dose: 5,000 unit Documented by: Sodium Chloride (Normal Saline -) 1,000 mls @ 100 mls/hr IV ASDIR [facility] Last Admin: 04/27/20 04:46 Dose: 100 mls/hr Documented by: Ceftriaxone Sodium 1 gm/ (Dextrose) 50 mls @ 100 mls/hr IVPB DAILY [facility] Last Admin: 04/27/20 09:19 Dose: 100 mls/hr Documented by: Ondansetron HCl (Zofran Injection) 4 mg IVPUSH Q6H PRN PRN Reason: NAUSEA Last Admin: 04/26/20 11:36 Dose: 4 mg Documented by: Pantoprazole Sodium (Protonix Iv) 40 mg IVPUSH DAILY [facility] Last Admin: 04/27/20 09:19 Dose: 40 mg Documented by: Thiamine HCl (Vitamin B1 Injection -) 200 mg IVPB DAILY [facility] Last Admin: 04/27/20 10:10 Dose: 200 mg Documented by: ASSESSMENT AND PLAN: 45-year-old female who presented to the ED today complaining of weakness resulting in multiple falls, abdominal pain, vomiting, abdominal distention, and diarrhea. #Abdominal Pain Alcoholic hepatitis, ascites, acute on chronic pancreatitis CT showing fatty liver, large vol ascitis, gallbladder polyp,lt adnexial mass need to rule out SBP start on SBP prophylaxis, paracentesis pending pain management as indicated replete electrolyte PRN can hold off IV fluids GI consult appreciated Discussed EtOH abstinence, risk of behavior with patient #Dyspnea on Exertion CXR non remarkable ECHO to evaluate LV function could be 2/2 malnutrition and chronic alcoholism chronic pancreatitis Gallbladder polyp (will need surgical eval) adnexial mass DVT prophylaxis
[2020-04-27 12:00] VITALS: BMI 17.6
--- NOTE | 2020-04-27 12:49 | PN ---
Physical Exam: SUBJECTIVE: Patient seen and examined at bedside. pt states she is having significant abdominal pain. she states that she had alot of diarrhea which stopped on friday. not currently having diarrhea. states her last drink was in january OBJECTIVE: Vital Signs Period Temp Pulse Resp BP Sys/[place] Pulse Ox Last 24 Hr 97.9 F-98.5 F 91-110 18-20 110-140/77-107 95-100 GENERAL: The patient is awake, alert, and fully oriented, in no acute distress. HEAD: extensive dandruff ENT: oropharynx clear without exudates NECK: Trachea midline, full range of motion, supple. LUNGS: Breath sounds equal, clear to auscultation bilaterally, no accessory muscle use. HEART: Regular rate and rhythm, S1, S2 ABDOMEN: Soft, diffusely tender, distended, normoactive bowel sounds, no guarding EXTREMITIES: 2+ pulses, warm, well-perfused, no edema. NEUROLOGICAL: Cranial nerves II through XII grossly intact. Normal speech SKIN: dry skin Laboratory Results - last 24 hr 04/27/20 04/27/20 04/27/20 07:10 07:10 07:10 WBC 7.8 RBC 3.04 L Hgb 10.9 Hct 32.5 MCV 106.9 H MCH 36.0 H MCHC 33.6 RDW 13.8 Plt Count 164 MPV 7.9 Absolute Neuts (auto) 5.8 Neutrophils % 74.4 Lymphocytes % 18.7 Monocytes % 3.9 Eosinophils % 2.5 Basophils % 0.5 Nucleated RBC % 0 Hypochromia 0 Platelet Estimate Normal Polychromasia 0 Poikilocytosis 0 Anisocytosis 1+ Microcytosis 0 Macrocytosis 1+ Sodium 135 L Potassium 3.5 Chloride 101 Carbon Dioxide 26 Anion Gap 8 BUN < 1.0 L* Creatinine 0.3 L Est GFR (CKD-EPI)AfAm 159.14 Est GFR (CKD-EPI)NonAf 137.31 Random Glucose 75 Calcium 7.5 L Iron 72 Total Bilirubin 2.7 H Direct Bilirubin 1.8 H AST 205 H ALT 54 Alkaline Phosphatase 156 H Total Protein 5.3 L Albumin 2.3 L Vitamin B12 3712 H COVID-19 ([facility]ARRYL) Hep A IgM Ab Confirm Hepatitis A Ab Total Hep Bs Antigen Hep B Core IgM Ab Hepatitis C Ab (EIA) Active Medications Generic Name Dose Route Start Last Admin Trade Name Freq PRN Reason Stop Dose Admin Acetaminophen 650 mg 04/27/20 09:40 Tylenol - PO Q6H PRN Fever Cyanocobalamin 1,000 mcg 04/26/20 10:45 04/27/20 09:20 Vitamin B12 Injection - IM 1,000 mcg DAILY [facility] Administration Heparin Sodium (Porcine) 5,000 unit 04/25/20 22:00 04/27/20 05:06 Heparin - SQ 5,000 unit TID [facility] Administration Ceftriaxone Sodium 1 gm/ 50 mls @ 100 mls/hr 04/26/20 11:00 04/27/20 09:19 Dextrose IVPB 100 mls/hr DAILY [facility] Administration Ondansetron HCl 4 mg 04/25/20 15:28 04/26/20 11:36 Zofran Injection IVPUSH 4 mg Q6H PRN Administration NAUSEA Pantoprazole Sodium 40 mg 04/26/20 10:00 04/27/20 09:19 Protonix Iv IVPUSH 40 mg DAILY [facility] Administration Thiamine HCl 200 mg 04/26/20 12:00 04/27/20 10:10 Vitamin B1 Injection - IVPB 200 mg DAILY [facility] Administration Abdomen/ Pelvis CT: Hepatomegaly with associated diffuse steatosis. Large volume ascites. 0.3 cm gallbladder wall polyp. Pericholecystic fluid is visualized, but may be secondary to extension of the aforementioned ascites rather than inflammation of the gallbladder wall. Recommend clinical correlation. 2.8 cm left adnexal structure with irregular contour and heterogeneous attenuation may represent a ruptured cystic lesion, however assessment is limited by the extensive surrounding ascites. If further characterization is clinically desired, consider follow-up with ultrasound. Transvaginal and Pelvis u/s :an at least moderate amount of pelvic free fluid is noted. Within the limitations of the exam no definite left adnexal mass lesion or abnormal cystic structure is noted. Correlation with one month follow-up MRI or CT is strongly suggested to document stability or resolution of the 2.8 x 2 cm left adnexal structure described on CT. A 1.4 cm left ovarian follicle/cyst is seen. No Doppler evidence of left ovarian torsion. The right ovary could not be definitely identified. ASSESSMENT/PLAN: 45 yo F p/w weakness, multiple falls, abdominal pain, vomiting, abdominal distention, and diarrhea. pt is admitted for ascites 2/2 alcoholic hepatitis Abdominal Pain 2/2 alcoholic hepatitis and ascites. r/o SBP -CT reviewed please see above. ascites noted. - IR consulted. would need to r/o SBP. possible paracentesis - c/w rocephin - will cont tylenol for pain - GI recs appreciated - c/w protonix UTI - UCx pending, prelim Lactose fermenting GNB - c/w rocephin Dyspnea on Exertion r/o HF -CXR reviewed and non remarkable - pending ECHO Hx of alcohol abuse - c/w thiamine Gallbladder polyp seen on CT - outpt surgical eval Adnexal structure on CT - f/u in 1 mo for rpt imaging DVT prophylaxis: Hep TID cont hloc ATTENDING PHYSICIAN STATEMENT I saw and evaluated the patient. I reviewed the resident's note and discussed the case with the resident. I agree with the resident's findings and plan as documented. SUBJECTIVE: OBJECTIVE: ASSESSMENT AND PLAN:
[2020-04-27 13:53] LABS: BLOOD UREA NITROGEN < 1.0 mg/dL (7-18)
--- NOTE | 2020-04-27 14:02 | CON.ID ---
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) - Alcohol/Substance Use Hx Alcohol Use: No - Smoking History Smoking history: Never smoked Have you smoked in the past 12 months: No Aproximately how many cigarettes per day: 5 Home Medications - Allergies Allergies/Adverse Reactions: Allergies Allergy/AdvReac Type Severity Reaction Status Date / Time Penicillins Allergy Verified 04/25/20 12:05 Sulfa (Sulfonamide Allergy Verified 04/25/20 12:05 Antibiotics) - Home Medications Home Medications: Ambulatory Orders Metoprolol Succinate 50 mg PO DAILY 04/25/20 Amlodipine Besylate 5 mg PO DAILY 04/27/20 Physical Exam Vital Signs: Vital Signs Temperature 98.2 F 04/27/20 09:00 Pulse Rate 110 H 04/27/20 09:00 Respiratory Rate 20 04/27/20 09:00 Blood Pressure 110/80 04/27/20 09:00 O2 Sat by Pulse Oximetry (%) 95 04/27/20 09:00 Labs: CBC, BMP 04/27/20 07:10 04/27/20 07:10
--- NOTE | 2020-04-27 14:15 | PN ---
Physical Exam: SUBJECTIVE: Patient seen and examined at bedside, endorses anorexia over the past 2-3 weeks with increasing abdominal girth. Has h/o Etoh abuse. Will need diagnostic/therapeutic paracentesis for analysis of ascitic fluid. Abx started for SBP ppx. VSS. OBJECTIVE: Vital Signs Period Temp Pulse Resp BP Sys/[place] Pulse Ox Last 24 Hr 97.9 F-98.5 F 91-110 18-20 110-140/77-107 95-100 GENERAL: The patient is awake, alert, and fully oriented, in no acute distress. appears pale, malnourished. HEENT NC/AT, mild scleral icterus, neck supple, dry MM LUNGS: CTAB, no crackles or wheezing HEART: Regular rate and rhythm, S1, S2 without murmur, rub or gallop. ABDOMEN: Distended, no shifting dullness appreciated, mildly tender, no guarding, decreased BS EXTREMITIES: 2+ pulses, warm, well-perfused, no edema. NEUROLOGICAL: Cranial nerves II through XII grossly intact. Normal speech, gait not observed. PSYCH: Normal mood, flat affect. SKIN: Warm, dry, normal turgor, no rashes or lesions noted Laboratory Results - last 24 hr 04/25/20 04/25/20 04/27/20 09:50 15:40 07:10 WBC 7.8 RBC 3.04 L Hgb 10.9 Hct 32.5 MCV 106.9 H MCH 36.0 H MCHC 33.6 RDW 13.8 Plt Count 164 MPV 7.9 Absolute Neuts (auto) 5.8 Neutrophils % 74.4 Lymphocytes % 18.7 Monocytes % 3.9 Eosinophils % 2.5 Basophils % 0.5 Nucleated RBC % 0 Hypochromia 0 Platelet Estimate Normal Polychromasia 0 Poikilocytosis 0 Anisocytosis 1+ Microcytosis 0 Macrocytosis 1+ Sodium Potassium Chloride Carbon Dioxide Anion Gap BUN Creatinine Est GFR (CKD-EPI)AfAm Est GFR (CKD-EPI)NonAf Random Glucose Calcium Iron Total Bilirubin Direct Bilirubin AST ALT Alkaline Phosphatase Total Protein Albumin Vitamin B12 Hep A IgM Ab Confirm Negative Negative Hepatitis A Ab Total Positive H Hep Bs Antigen Negative Hep B Core IgM Ab Negative Hepatitis C Ab (EIA) 0.1 04/27/20 04/27/20 07:10 07:10 WBC RBC Hgb Hct MCV MCH MCHC RDW Plt Count MPV Absolute Neuts (auto) Neutrophils % Lymphocytes % Monocytes % Eosinophils % Basophils % Nucleated RBC % Hypochromia Platelet Estimate Polychromasia Poikilocytosis Anisocytosis Microcytosis Macrocytosis Sodium 135 L Potassium 3.5 Chloride 101 Carbon Dioxide 26 Anion Gap 8 BUN < 1.0 L* Creatinine 0.3 L Est GFR (CKD-EPI)AfAm 159.14 Est GFR (CKD-EPI)NonAf 137.31 Random Glucose 75 Calcium 7.5 L Iron 72 Total Bilirubin 2.7 H Direct Bilirubin 1.8 H AST 205 H ALT 54 Alkaline Phosphatase 156 H Total Protein 5.3 L Albumin 2.3 L Vitamin B12 3712 H Hep A IgM Ab Confirm Hepatitis A Ab Total Hep Bs Antigen Hep B Core IgM Ab Hepatitis C Ab (EIA) Active Medications Generic Name Dose Route Start Last Admin Trade Name Freq PRN Reason Stop Dose Admin Acetaminophen 650 mg 04/27/20 09:40 Tylenol - PO Q6H PRN Fever Cyanocobalamin 1,000 mcg 04/26/20 10:45 04/27/20 09:20 Vitamin B12 Injection - IM 1,000 mcg DAILY [facility] Administration Heparin Sodium (Porcine) 5,000 unit 04/25/20 22:00 04/27/20 05:06 Heparin - SQ 5,000 unit TID [facility] Administration Ceftriaxone Sodium 1 gm/ 50 mls @ 100 mls/hr 04/26/20 11:00 04/27/20 09:19 Dextrose IVPB 100 mls/hr DAILY [facility] Administration Ondansetron HCl 4 mg 04/25/20 15:28 04/26/20 11:36 Zofran Injection IVPUSH 4 mg Q6H PRN Administration NAUSEA Pantoprazole Sodium 40 mg 04/26/20 10:00 04/27/20 09:19 Protonix Iv IVPUSH 40 mg DAILY [facility] Administration Thiamine HCl 200 mg 04/26/20 12:00 04/27/20 10:10 Vitamin B1 Injection - IVPB 200 mg DAILY [facility]TEN Administration ASSESSMENT/PLAN: 45 F Etoh related liver cirrhosis with new ascites HTN Etoh abuse Plan: Obtain ABD US, serial LFTs Ceftriaxone for SBP ppx Transfer to [facility] for IR guided paracentesis Thiamine/FA/MV/B12 GI evaluation DVT ppx: obtain FOBT if negative, then Heparin SQ Visit type - Emergency Visit Emergency Visit: Yes ED Registration Date: 04/25/20 Care time: The patient presented to the Emergency Department on the above date and was hospitalized for further evaluation of their emergent condition. - New Patient This patient is new to me today: Yes Date on this admission: 04/27/20 - Critical Care Critical Care patient: No - Discharge Referral Referred to [facility] No
--- NOTE | 2020-04-27 15:48 | CONSULT ---
Consult Consult Specialty:: Nephrology Reason for Consultation:: hyponatremia - History of Present Illness Chief Complaint: weakness History of Present Illness: Pt is a 45 year old female with pmhx of etoh abuse who presents to the ER wtih weakness and falls. She also complains of abdominal distension. I was called to evaluate her for hyponatremia. She says that she has history of etoh abuse however she has not had any alcohol since february. She also complains of diarrhea. She denies dysuria or hematuria. She is aware of having liver disease however she has not seen a business segment manager nor did she have a workup. 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) - Alcohol/Substance Use Hx Alcohol Use: No - Smoking History Smoking history: Never smoked Have you smoked in the past 12 months: No Aproximately how many cigarettes per day: 5 Home Medications - Allergies Allergies/Adverse Reactions: Allergies Allergy/AdvReac Type Severity Reaction Status Date / Time Penicillins Allergy Verified 04/25/20 12:05 Sulfa (Sulfonamide Allergy Verified 04/25/20 12:05 Antibiotics) - Home Medications Home Medications: Ambulatory Orders Metoprolol Succinate 50 mg PO DAILY 04/25/20 Amlodipine Besylate 5 mg PO DAILY 04/27/20 Family Medical History Family History: Denies Review of Systems - Review of Systems Constitutional: reports: Loss of Appetite, Weakness Eyes: reports: No Symptoms HENT: reports: No Symptoms Neck: reports: No Symptoms Cardiovascular: reports: No Symptoms Respiratory: reports: No Symptoms Gastrointestinal: reports: Diarrhea Genitourinary: reports: No Symptoms Musculoskeletal: reports: Muscle Weakness Integumentary: reports: No Symptoms Neurological: reports: No Symptoms Endocrine: reports: No Symptoms Hematology/Lymphatic: reports: No Symptoms Physical Exam Vital Signs: Vital Signs Temperature 99 F 04/27/20 14:15 Pulse Rate 110 H 04/27/20 14:15 Respiratory Rate 18 04/27/20 14:15 Blood Pressure 105/68 04/27/20 14:15 O2 Sat by Pulse Oximetry (%) 95 04/27/20 09:00 Constitutional: Yes: Calm Eyes: Yes: Conjunctiva Clear HENT: Yes: Atraumatic Cardiovascular: Yes: S1, S2 Respiratory: Yes: CTA Bilaterally Gastrointestinal: Yes: Ascites Renal/: Yes: WNL Musculoskeletal: Yes: WNL Edema: No Neurological: Yes: Oriented Psychiatric: Yes: Oriented Labs: CBC, BMP 04/27/20 07:10 04/27/20 07:10 Laboratory Tests 04/25/20 04/25/20 04/25/20 12:45 15:20 19:45 Sodium 129 L Potassium Creatinine Lactic Acid 2.4 H* Calcium Urine Protein 1+ H 04/26/20 04/27/20 07:30 07:10 Sodium 130 L 135 L Potassium 3.2 L 3.5 Creatinine 0.3 L 0.3 L Lactic Acid Calcium 7.5 L Urine Protein Imaging - Results Cat Scan: Report Reviewed Problem List - Problems (1) Abdominal pain Code(s): R10.9 - UNSPECIFIED ABDOMINAL PAIN (2) Hyponatremia Code(s): E87.1 - HYPO-OSMOLALITY AND HYPONATREMIA Assessment/Plan Current Medications Generic Name Dose Route Start Last Admin Trade Name Rc PRN Reason Stop Dose Admin Acetaminophen 650 mg 04/27/20 09:40 Tylenol - PO Q6H PRN Fever Cyanocobalamin 1,000 mcg 04/26/20 10:45 04/27/20 09:20 Vitamin B12 Injection - IM 1,000 mcg DAILY [facility] Administration Heparin Sodium (Porcine) 5,000 unit 04/25/20 22:00 04/27/20 15:25 Heparin - SQ Not Given TID COLTEN Ceftriaxone Sodium 1 gm/ 50 mls @ 100 mls/hr 04/26/20 11:00 04/27/20 09:19 Dextrose IVPB 100 mls/hr DAILY [facility] Administration Ondansetron HCl 4 mg 04/25/20 15:28 04/26/20 11:36 Zofran Injection IVPUSH 4 mg Q6H PRN Administration NAUSEA Pantoprazole Sodium 40 mg 04/26/20 10:00 04/27/20 09:19 Protonix Iv IVPUSH 40 mg DAILY [facility] Administration Thiamine HCl 200 mg 04/26/20 12:00 04/27/20 10:10 Vitamin B1 Injection - IVPB 200 mg DAILY [facility]TEN Administration Impression 1. hyponatremia 2. hypokalemia 3. liver cirrhosis 4. ascites 5. hx etoh abuse Plan - sodium is improved - potassium improved - GI follow up - can d/c fludis as ascites is getting more tense - cont to monitor lytes - repeat ua
--- NOTE | 2020-04-27 16:07 | ECHO ---
Name: SANDRA GRIFFITHS Exam:Adult Echocardiogram Study Date: 04/27/2020 02:01 PM Age: 45 yrs Reason For Study: LV Function Height: 64 in Weight: 103 lb BSA: 1.5 m2 MMode/2D Measurements & Calculations IVSd: 1.0 cm Ao root diam: 3.1 cm LVIDd: 3.3 cm LA dimension: 2.3 cm LVIDs: 2.4 cm LVPWd: 0.80 cm EDV(Teich): 44.3 ml LVOT diam: 2.0 cm ESV(Teich): 20.7 ml Doppler Measurements & Calculations MV E max blake: 66.6 cm/sec Ao V2 max: 111.6 cm/sec MV A max blake: 69.7 cm/sec Ao max P.0 mmHg MV E/A: 0.96 MV dec time: 0.07 sec SHANTA(V,D): 2.2 cm2 LV V1 max P.5 mmHg TR max blake: 208.1 cm/sec LV V1 max: 79.6 cm/sec TR max P.3 mmHg PA V2 max: 79.9 cm/sec Med Peak E' Blake: 7.0 cm/sec PA max P.6 mmHg Med E/e': 9.5 Lat Peak E' Blake: 14.7 cm/sec Lat E/e': 4.5 Procedure A complete two-dimensional transthoracic echocardiogram was performed (2D, M-mode, Doppler and color flow Doppler). Left Ventricle The left ventricular size, thickness and function are normal. Ejection Fraction = 60-65%. The left ve ntricular wall motion is normal. Right Ventricle The right ventricle is normal in size and function. Atria Normal left and right atrial size and function. Mitral Valve There is no mitral regurgitation noted. Tricuspid Valve There is trace tricuspid regurgitation. There was insufficient TR detected to calculate RV systolic p ressure. Aortic Valve No hemodynamically significant valvular aortic stenosis. No aortic regurgitation is present. Pulmonic Valve There is no pulmonic valvular regurgitation. Great Vessels The aortic root is normal size. Pericardium/Pleura There is no pericardial effusion. Interpretation Summary The left ventricular size, thickness and function are normal The right ventricle is normal in size and function. There is trace tricuspid regurgitation. MD Tito Chance 04/27/2020 04:07 PM
--- NOTE | 2020-04-27 16:57 | PN ---
Progress Note (short form) - Note Progress Note: Patient s/p paracentesis (by ultrasound-guidance) - 1700 cc clear yellow fluid removed; feels better with less abdominal discomfort. On Ceftriaxone for ??SBP ; remains with normal WBC and afebrile. Labs still with elevated serum AST/ALT - c/w ETOH-hepatitis (may take days-week off ETOH to see labs improving) VSS Abdomen less distended (s/p paracentesis) +BS minimal nonspecific discomfort without rebound No LE edema Labs reviewed with serum Na improved. Hepatitis serologies negative for acute viral infection to date. Await ascites cultures and chemistries; suspect patient with transudate ascites from liver disease; hopefully will improve/resolve with ETOH avoidance. Decision regarding diuretic per Nephrology Would limit Na intake and encourage good nutrition (suspect patient was not eating well prior to admission) Social service involvement for post-hospital management
[2020-04-27] MEDS: ACETAMINOPHEN 325 MG TABLET (FP) PO PRN (18:25)
[2020-04-27 18:34] LABS: BF WBC & OTHER NUCLEATED CELLS 37 /mm3
[2020-04-27 19:02] LABS: BODY FLUID MACROPHAGES 74 %; BODY FLUID MONOCYTE 17 %
[2020-04-27 22:03] LABS: URINE APPEARANCE CLEAR; URINE BILIRUBIN NEGATIVE (NEGATIVE); URINE COLOR YELLOW; URINE GLUCOSE (UA) NEGATIVE (NEGATIVE); URINE KETONE NEGATIVE (NEGATIVE); URINE LEUK ESTERASE NEGATIVE (NEGATIVE); URINE NITRITE NEGATIVE (NEGATIVE); URINE PROTEIN NEGATIVE (NEGATIVE)
[2020-04-28] MEDS: ACETAMINOPHEN 325 MG TABLET (FP) PO PRN ×4 (01:08→18:55)
[2020-04-28] MEDS: HEPARIN NA (PORCINE) 5,000 UNITS/ML 1ML VIAL SQ SCH ×3 (05:33→21:03)
[2020-04-28 08:21] LABS: HEMOGLOBIN 10.7 GM/dL (10.7-15.3); MCH 35.8 pg (25.7-33.7); MCHC 33.4 g/dl (32.0-36.0); PLATELET COUNT 150 K/MM3 (134-434); RBC 2.99 M/mm3 (3.60-5.2); RDW 13.7 % (11.6-15.6); WHITE BLOOD COUNT 5.6 K/mm3 (4.0-10.0)
[2020-04-28 08:30] LABS: ALBUMIN 2.1 g/dl (3.4-5.0); BILIRUBIN,TOTAL 2.3 mg/dL (0.2-1); CALCIUM 7.6 mg/dL (8.5-10.1); CREATININE 0.2 mg/dL (0.55-1.3); MAGNESIUM 2.4 mg/dL (1.8-2.4); PHOSPHOROUS 1.4 mg/dL (2.5-4.9); POTASSIUM 3.8 mmol/L (3.5-5.1); TOT PROT 5.2 g/dl (6.4-8.2)
[2020-04-28 08:42] LABS: BLOOD UREA NITROGEN 1.2 mg/dL (7-18)
[2020-04-28] MEDS ORDERED: DEXTROSE 5%-WATER - 50 ML IVPB ONE (08:57)
[2020-04-28] MEDS ORDERED: cefTRIAXone SODIUM 1 GM VIAL ONE (08:57)
[2020-04-28] MEDS: PANTOPRAZOLE SODIUM 40 MG VIAL IVPUSH SCH (09:15)
[2020-04-28] MEDS: CYANOCOBALAMIN (VITAMIN B-12) 1000 MCG/1 ML VIAL IM SCH (09:15)
[2020-04-28] MEDS: CEFTRIAXONE 1 GM in DEXTROSE 5%-WATER - 50 ML IVPB SCH (09:15)
[2020-04-28] MEDS: THIAMINE HCL 200 MG/2 ML VIAL IVPB SCH (10:17)
--- NOTE | 2020-04-28 11:35 | PN ---
Progress Note, Physician Chief Complaint: Pt seen and examined at bedside. She had her paracentesis. - Current Medication List Current Medications: Active Medications Acetaminophen (Tylenol -) 650 mg PO Q6H PRN PRN Reason: Fever Last Admin: 04/28/20 07:32 Dose: 650 mg Documented by: Cyanocobalamin (Vitamin B12 Injection -) 1,000 mcg IM DAILY [facility] Last Admin: 04/28/20 09:15 Dose: 1,000 mcg Documented by: Heparin Sodium (Porcine) (Heparin -) 5,000 unit SQ TID [facility] Last Admin: 04/28/20 05:33 Dose: 5,000 unit Documented by: Ceftriaxone Sodium 1 gm/ (Dextrose) 50 mls @ 100 mls/hr IVPB DAILY [facility] Last Admin: 04/28/20 09:15 Dose: 100 mls/hr Documented by: Ondansetron HCl (Zofran Injection) 4 mg IVPUSH Q6H PRN PRN Reason: NAUSEA Last Admin: 04/26/20 11:36 Dose: 4 mg Documented by: Pantoprazole Sodium (Protonix Iv) 40 mg IVPUSH DAILY [facility] Last Admin: 04/28/20 09:15 Dose: 40 mg Documented by: Thiamine HCl (Vitamin B1 Injection -) 200 mg IVPB DAILY [facility] Last Admin: 04/28/20 10:17 Dose: 200 mg Documented by: - Objective Vital Signs: Vital Signs Temperature 98.1 F 04/28/20 10:00 Pulse Rate 102 H 04/28/20 10:00 Respiratory Rate 16 04/28/20 10:00 Blood Pressure 113/73 04/28/20 10:00 O2 Sat by Pulse Oximetry (%) 96 04/28/20 10:00 Constitutional: Yes: Calm Eyes: Yes: Conjunctiva Clear HENT: Yes: Atraumatic Neck: Yes: Supple Cardiovascular: Yes: S1, S2 Respiratory: Yes: CTA Bilaterally Gastrointestinal: Yes: Soft Genitourinary: Yes: WNL Musculoskeletal: Yes: WNL Edema: No Neurological: Yes: Oriented Psychiatric: Yes: Oriented Labs: CBC, BMP 04/28/20 07:09 04/28/20 07:09 INR, PTT INR 1.46 (0.82-1.09) H 04/26/20 07:30 Problem List - Problems (1) Abdominal pain Code(s): R10.9 - UNSPECIFIED ABDOMINAL PAIN (2) Hyponatremia Code(s): E87.1 - HYPO-OSMOLALITY AND HYPONATREMIA Assessment/Plan Current Medications Generic Name Dose Route Start Last Admin Trade Name Rc PRN Reason Stop Dose Admin Acetaminophen 650 mg 04/27/20 09:40 04/28/20 07:32 Tylenol - PO 650 mg Q6H PRN Administration Fever Cyanocobalamin 1,000 mcg 04/26/20 10:45 04/28/20 09:15 Vitamin B12 Injection - IM 1,000 mcg DAILY COLTEN Administration Heparin Sodium (Porcine) 5,000 unit 04/25/20 22:00 04/28/20 05:33 Heparin - SQ 5,000 unit TID COLTEN Administration Ceftriaxone Sodium 1 gm/ 50 mls @ 100 mls/hr 04/26/20 11:00 04/28/20 09:15 Dextrose IVPB 100 mls/hr DAILY [facility] Administration Ondansetron HCl 4 mg 04/25/20 15:28 04/26/20 11:36 Zofran Injection IVPUSH 4 mg Q6H PRN Administration NAUSEA Pantoprazole Sodium 40 mg 04/26/20 10:00 04/28/20 09:15 Protonix Iv IVPUSH 40 mg DAILY COLTEN Administration Thiamine HCl 200 mg 04/26/20 12:00 04/28/20 10:17 Vitamin B1 Injection - IVPB 200 mg DAILY COLTEN Administration Laboratory Tests 04/27/20 21:20 Ur Specific [place] 1.003 L Urine Protein Negative Urine Glucose (UA) Negative Urine Ketones Negative Urine Blood Negative Urine Nitrite Negative Urine Bilirubin Negative Urine Urobilinogen 1.0 Ur Leukocyte Esterase Negative Impression 1. hyponatremia 2. hypokalemia 3. liver cirrhosis 4. ascites 5. hx etoh abuse Plan - can start aldactone - monitor lytes - monitor renal function - potassium and sodium stable - GI follow up - repeat us reviewed
[2020-04-28] MEDS ORDERED: SPIRONOLACTONE 25 MG TABLET PO SCH ×2 (11:45→18:32)
--- NOTE | 2020-04-28 12:00 | PN ---
Progress Note (short form) - Note Progress Note: Patient s/p paracentesis yesterday; chemistries/cell count of fluid and cultures pending. Patient remains afebrile on antibiotics. WBC improving and Hct stable. LFTs also improving (off ETOH) Started on Aldactone for fluid management/ascites. Decision regarding continuing antibiotics per ID - suspect ascites fluid cultures (and WBC) will be normal -and patient was already on antibioitcs before paracentesisi. Discharge plans per Social service arrangements and clinical course. Needs outpatient followup re liver/ETOH issues. Please recall if inpatient GI issues arise.
[2020-04-28] MEDS ORDERED: NAPH,MB-DB/K PH,MBDB POWDER PACKET PO ONE (12:17)
[2020-04-28] MEDS ORDERED: POLYETHYLENE GLYCOL 3350 119 GM BTL PO PRN (12:36)
--- NOTE | 2020-04-28 12:48 | PN ---
Progress Note, Physician History of Present Illness: not feeling too good today abd pain has increased fluid results are pending - Current Medication List Current Medications: Active Medications Acetaminophen (Tylenol -) 650 mg PO Q6H PRN PRN Reason: Fever Last Admin: 04/28/20 07:32 Dose: 650 mg Documented by: Cyanocobalamin (Vitamin B12 Injection -) 1,000 mcg IM DAILY [facility] Last Admin: 04/28/20 09:15 Dose: 1,000 mcg Documented by: Heparin Sodium (Porcine) (Heparin -) 5,000 unit SQ TID [facility] Last Admin: 04/28/20 05:33 Dose: 5,000 unit Documented by: Ceftriaxone Sodium 1 gm/ (Dextrose) 50 mls @ 100 mls/hr IVPB DAILY [facility] Last Admin: 04/28/20 09:15 Dose: 100 mls/hr Documented by: Ondansetron HCl (Zofran Injection) 4 mg IVPUSH Q6H PRN PRN Reason: NAUSEA Last Admin: 04/26/20 11:36 Dose: 4 mg Documented by: Pantoprazole Sodium (Protonix Iv) 40 mg IVPUSH DAILY [facility] Last Admin: 04/28/20 09:15 Dose: 40 mg Documented by: Polyethylene Glycol (Miralax (For Daily Use) -) 17 gm PO DAILY PRN PRN Reason: CONSTIPATION Spironolactone (Aldactone -) 25 mg PO DAILY [facility] Last Admin: 04/28/20 12:23 Dose: 25 mg Documented by: Thiamine HCl (Vitamin B1 Injection -) 200 mg IVPB DAILY [facility] Last Admin: 04/28/20 10:17 Dose: 200 mg Documented by: - Objective Vital Signs: Vital Signs Temperature 98.1 F 04/28/20 10:00 Pulse Rate 102 H 04/28/20 10:00 Respiratory Rate 16 04/28/20 10:00 Blood Pressure 113/73 04/28/20 10:00 O2 Sat by Pulse Oximetry (%) 96 04/28/20 10:00 Constitutional: Yes: Calm, Mild Distress, Thin Cardiovascular: Yes: S1, S2 Respiratory: Yes: Regular, CTA Bilaterally Gastrointestinal: Yes: Ascites, Tenderness Musculoskeletal: Yes: WNL Extremities: Yes: WNL Neurological: Yes: Alert, Oriented Psychiatric: Yes: Alert, Oriented Labs: CBC, BMP 04/28/20 07:09 04/28/20 07:09 INR, PTT INR 1.46 (0.82-1.09) H 04/26/20 07:30 Assessment/Plan hyponatremia 2. hypokalemia 3. liver cirrhosis 4. ascites 5. hx etoh abuse plan continue current mgmt abx await for fluid results rest as per the team
--- NOTE | 2020-04-28 12:51 | PN ---
Teaching Attending Note Name of Resident: Sadie Julien ATTENDING PHYSICIAN STATEMENT I saw and evaluated the patient. I reviewed the resident's note and discussed the case with the resident. I agree with the resident's findings and plan as documented. SUBJECTIVE: pt seen and examined, feeling much better OBJECTIVE: Last Vital Signs Temp Pulse Resp BP Pulse Ox 98.1 F 102 H 16 113/73 96 04/28/20 10:00 04/28/20 10:00 04/28/20 10:00 04/28/20 10:00 04/28/20 10:00 GENERAL: Awake, alert, and fully oriented, in no acute distress. HEAD: AT/NC, Extensive dandruff noted, seborrheic dermatitis EYES: Pupils equal, round and reactive to light, sclera anicteric, conjunctiva clear. LUNGS: Breath sounds equal, clear to auscultation bilaterally. No wheezes, and no crackles. No accessory muscle use. HEART: Regular rate and rhythm, normal S1 and S2, 2/6 systolic murmur at LSB ABDOMEN: Soft, minimally tender thoughout, mod distension, no fluid wave appreciated due to guarding. spider angiomata LOWER EXTREMITIES: 2+ pulses, warm, well-perfused. No calf tenderness. No peripheral edema. NEUROLOGICAL: Cranial nerves II-XII intact. Normal speech. CBCD WBC 5.6 K/mm3 (4.0-10.0) 04/28/20 07:09 RBC 2.99 M/mm3 (3.60-5.2) L 04/28/20 07:09 Hgb 10.7 GM/dL (10.7-15.3) 04/28/20 07:09 Hct 32.0 % (32.4-45.2) L 04/28/20 07:09 MCV 107.0 fl (80-96) H 04/28/20 07:09 MCHC 33.4 g/dl (32.0-36.0) 04/28/20 07:09 RDW 13.7 % (11.6-15.6) 04/28/20 07:09 Plt Count 150 K/MM3 (134-434) 04/28/20 07:09 MPV 8.0 fl (7.5-11.1) 04/28/20 07:09 CMP Sodium 139 mmol/L (136-145) 04/28/20 07:09 Potassium 3.8 mmol/L (3.5-5.1) 04/28/20 07:09 Chloride 106 mmol/L (98-107) 04/28/20 07:09 Carbon Dioxide 28 mmol/L (21-32) 04/28/20 07:09 Anion Gap 5 MMOL/L (8-16) L 04/28/20 07:09 BUN 1.2 mg/dL (7-18) L* 04/28/20 07:09 Creatinine 0.2 mg/dL (0.55-1.3) L 04/28/20 07:09 Calcium 7.6 mg/dL (8.5-10.1) L 04/28/20 07:09 Total Bilirubin 2.3 mg/dL (0.2-1) H 04/28/20 07:09 AST 134 U/L (15-37) H 04/28/20 07:09 ALT 44 U/L (13-61) 04/28/20 07:09 Alkaline Phosphatase 149 U/L (45-117) H 04/28/20 07:09 Total Protein 5.2 g/dl (6.4-8.2) L 04/28/20 07:09 Albumin 2.1 g/dl (3.4-5.0) L 04/28/20 07:09 Active Medications Acetaminophen (Tylenol -) 650 mg PO Q6H PRN PRN Reason: Fever Last Admin: 04/28/20 07:32 Dose: 650 mg Documented by: Cyanocobalamin (Vitamin B12 Injection -) 1,000 mcg IM DAILY [facility] Last Admin: 04/28/20 09:15 Dose: 1,000 mcg Documented by: Heparin Sodium (Porcine) (Heparin -) 5,000 unit SQ TID [facility] Last Admin: 04/28/20 05:33 Dose: 5,000 unit Documented by: Ceftriaxone Sodium 1 gm/ (Dextrose) 50 mls @ 100 mls/hr IVPB DAILY [facility] Last Admin: 04/28/20 09:15 Dose: 100 mls/hr Documented by: Ondansetron HCl (Zofran Injection) 4 mg IVPUSH Q6H PRN PRN Reason: NAUSEA Last Admin: 04/26/20 11:36 Dose: 4 mg Documented by: Pantoprazole Sodium (Protonix Iv) 40 mg IVPUSH DAILY [facility] Last Admin: 04/28/20 09:15 Dose: 40 mg Documented by: Polyethylene Glycol (Miralax (For Daily Use) -) 17 gm PO DAILY PRN PRN Reason: CONSTIPATION Spironolactone (Aldactone -) 25 mg PO DAILY [facility] Last Admin: 04/28/20 12:23 Dose: 25 mg Documented by: Thiamine HCl (Vitamin B1 Injection -) 200 mg IVPB DAILY [facility] Last Admin: 04/28/20 10:17 Dose: 200 mg Documented by: ASSESSMENT AND PLAN: 45-year-old female who presented to the ED today complaining of weakness resulting in multiple falls, abdominal pain, vomiting, abdominal distention, and diarrhea. #Abdominal Pain Alcoholic hepatitis, ascites, acute on chronic pancreatitis paracentesis showed low WBC (pt was on Abx prior to paracentesis) ECHO normal EF replete electrolyte PRN dietitian consult GI consult appreciated Discussed EtOH abstinence, risk of behavior with patient UTI chronic pancreatitis Gallbladder polyp (will need surgical eval) adnexial mass (will need follow up with repeat imaging and OBGYn consult) DVT prophylaxis
[2020-04-28] MEDS: FUROSEMIDE 20 MG TABLET (FP) PO SCH (18:54)
--- NOTE | 2020-04-28 19:17 | PN ---
Physical Exam: SUBJECTIVE: Patient seen and examined at bedside, she reports improvement of her pain. OBJECTIVE: Vital Signs Period Temp Pulse Resp BP Sys/Lincoln Pulse Ox Last 24 Hr 98.1 F-98.6 F 90-120 16-20 104-134/72-81 96-99 GENERAL: The patient is awake, alert, and fully oriented, in no acute distress. HEAD: Normal with no signs of trauma. EYES: PERRL, extraocular movements intact, sclera anicteric, conjunctiva clear.. ENT:nares patent, oropharynx clear without exudates, moist mucous membranes. NECK: Trachea midline, full range of motion, supple. LUNGS: Breath sounds equal, clear to auscultation bilaterally, no wheezes, no crackles, no accessory muscle use. HEART: Regular rate and rhythm, S1, S2 without murmur, rub or gallop. ABDOMEN: Soft,non tender, mild distention, normoactive bowel sounds, no guarding EXTREMITIES: 2+ pulses, warm, well-perfused, no edema. NEUROLOGICAL: Cranial nerves II through XII grossly intact. Normal speech, gait not observed. PSYCH: Normal mood, normal affect. SKIN: Warm, dry, normal turgor, no rashes or lesions noted Laboratory Results - last 24 hr 04/27/20 04/27/20 04/27/20 17:30 21:20 21:20 WBC RBC Hgb Hct MCV MCH MCHC RDW Plt Count MPV Sodium Potassium Chloride Carbon Dioxide Anion Gap BUN Creatinine Est GFR (CKD-EPI)AfAm Est GFR (CKD-EPI)NonAf Random Glucose Calcium Phosphorus Magnesium Total Bilirubin AST ALT Alkaline Phosphatase Total Protein Albumin Urine Color Yellow Urine Appearance Clear Urine pH 7.0 Ur Specific [place] 1.003 L Urine Protein Negative Urine Glucose (UA) Negative Urine Ketones Negative Urine Blood Negative Urine Nitrite Negative Urine Bilirubin Negative Urine Urobilinogen 1.0 Ur Leukocyte Esterase Negative Ur Random Sodium < 18 L Ur Random Potassium < 9.0 L Ur Random Chloride < 11 L Fluid Neutrophils 2 Fluid Lymphocytes 7 Pleural Monocytes 17 Pleural Macrophages 74 04/28/20 04/28/20 07:09 07:09 WBC 5.6 RBC 2.99 L Hgb 10.7 Hct 32.0 L MCV 107.0 H MCH 35.8 H MCHC 33.4 RDW 13.7 Plt Count 150 MPV 8.0 Sodium 139 Potassium 3.8 Chloride 106 Carbon Dioxide 28 Anion Gap 5 L BUN 1.2 L* Creatinine 0.2 L Est GFR (CKD-EPI)AfAm 181.85 Est GFR (CKD-EPI)NonAf 156.90 Random Glucose 87 Calcium 7.6 L Phosphorus 1.4 L Magnesium 2.4 Total Bilirubin 2.3 H AST 134 H ALT 44 Alkaline Phosphatase 149 H Total Protein 5.2 L Albumin 2.1 L Urine Color Urine Appearance Urine pH Ur Specific [place] Urine Protein Urine Glucose (UA) Urine Ketones Urine Blood Urine Nitrite Urine Bilirubin Urine Urobilinogen Ur Leukocyte Esterase Ur Random Sodium Ur Random Potassium Ur Random Chloride Fluid Neutrophils Fluid Lymphocytes Pleural Monocytes Pleural Macrophages Active Medications Generic Name Dose Route Start Last Admin Trade Name Freq PRN Reason Stop Dose Admin Acetaminophen 650 mg 04/27/20 09:40 04/28/20 13:32 Tylenol - PO 650 mg Q6H PRN Administration Fever Cyanocobalamin 1,000 mcg 04/26/20 10:45 04/28/20 09:15 Vitamin B12 Injection - IM 1,000 mcg DAILY COLTEN Administration Furosemide 20 mg 04/28/20 18:45 Lasix - PO DAILY COLTEN Heparin Sodium (Porcine) 5,000 unit 04/25/20 22:00 04/28/20 14:14 Heparin - SQ 5,000 unit TID COLTEN Administration Ceftriaxone Sodium 1 gm/ 50 mls @ 100 mls/hr 04/26/20 11:00 04/28/20 09:15 Dextrose IVPB 100 mls/hr DAILY COLTEN Administration Ondansetron HCl 4 mg 04/25/20 15:28 04/26/20 11:36 Zofran Injection IVPUSH 4 mg Q6H PRN Administration NAUSEA Pantoprazole Sodium 40 mg 04/26/20 10:00 04/28/20 09:15 Protonix Iv IVPUSH 40 mg DAILY COLTEN Administration Polyethylene Glycol 17 gm 04/28/20 12:36 04/28/20 13:10 Miralax (For Daily Use) - PO 17 gm DAILY PRN Administration CONSTIPATION Spironolactone 50 mg 04/28/20 18:32 Aldactone - PO DAILY COLTEN Thiamine HCl 200 mg 04/26/20 12:00 04/28/20 10:17 Vitamin B1 Injection - IVPB 200 mg DAILY COLTEN Administration Tramadol HCl 50 mg 04/28/20 18:31 Ultram - PO BID PRN PAIN LEVEL 6-10 Abdomen/ Pelvis CT: Hepatomegaly with associated diffuse steatosis. Large volume ascites. 0.3 cm gallbladder wall polyp. Pericholecystic fluid is visualized, but may be secondary to extension of the aforementioned ascites rather than inflammation of the gallbladder wall. Recommend clinical correlation. 2.8 cm left adnexal structure with irregular contour and heterogeneous attenuation may represent a ruptured cystic lesion, however assessment is limited by the extensive surrounding ascites. If further characterization is clinically desired, consider follow-up with ultrasound. Transvaginal and Pelvis u/s :an at least moderate amount of pelvic free fluid is noted. Within the limitations of the exam no definite left adnexal mass lesion or abnormal cystic structure is noted. Correlation with one month follow-up MRI or CT is strongly suggested to document stability or resolution of the 2.8 x 2 cm left adnexal structure described on CT. A 1.4 cm left ovarian follicle/cyst is seen. No Doppler evidence of left ovarian torsion. The right ovary could not be definitely identified. ASSESSMENT/PLAN: 45 yo F p/w weakness, multiple falls, abdominal pain, vomiting, abdominal distention, and diarrhea. pt is admitted for ascites 2/2 alcoholic hepatitis # Abdominal Pain 2/2 alcoholic hepatitis and ascites. r/o SBP - CTAB as above - IR consulted. s/p paracentesis, 1.7L of clear, yellow fluids. Pending fluid analysis: low WBC , however, pt was on Abx prior to paracentesis - On rocephin D#2 - will continue tylenol for pain - GI recs appreciated - Dietitian consulted - c/w protonix #UTI - UCx- prelim Lactose fermenting GNB - on rocephin D#2 #Dyspnea on Exertion r/o HF - CXR reviewed and non remarkable - ECHO- EF 60-65% No wall motion abnormalities #Gallbladder polyp - Incidental finding on CT - will need surgical eval outpt #Adnexal structure on CT - f/u in 1 mo for rpt imaging #DVT ppx: - Hep TID Visit type - Emergency Visit Emergency Visit: Yes ED Registration Date: 04/25/20 Care time: The patient presented to the Emergency Department on the above date and was hospitalized for further evaluation of their emergent condition. - New Patient This patient is new to me today: No - Critical Care Critical Care patient: No - Discharge Referral Referred to [facility] Med [facility] No ATTENDING PHYSICIAN STATEMENT I saw and evaluated the patient. I reviewed the resident's note and discussed the case with the resident. I agree with the resident's findings and plan as documented. SUBJECTIVE: OBJECTIVE: ASSESSMENT AND PLAN:
[2020-04-28] MEDS: traMADol HCL 50 MG TABLET PO PRN (20:24)
[2020-04-29] MEDS: ACETAMINOPHEN 325 MG TABLET (FP) PO PRN ×2 (01:05→09:17)
[2020-04-29] MEDS: HEPARIN NA (PORCINE) 5,000 UNITS/ML 1ML VIAL SQ SCH ×2 (05:37→13:37)
[2020-04-29] MEDS: traMADol HCL 50 MG TABLET PO PRN (05:44)
[2020-04-29 07:44] LABS: ALBUMIN 2.1 g/dl (3.4-5.0); BILIRUBIN,TOTAL 2.4 mg/dL (0.2-1); CALCIUM 7.8 mg/dL (8.5-10.1); CREATININE 0.4 mg/dL (0.55-1.3); MAGNESIUM 1.8 mg/dL (1.8-2.4); PHOSPHOROUS 1.6 mg/dL (2.5-4.9); POTASSIUM 3.5 mmol/L (3.5-5.1); TOT PROT 5.1 g/dl (6.4-8.2)
[2020-04-29 07:46] LABS: BASO % 0.7 % (0-2.0); EOS % 3.2 % (0-4.5); HEMATOCRIT 32.9 % (32.4-45.2); HEMOGLOBIN 11.2 GM/dL (10.7-15.3); LYMPH % 21.9 % (8-40); MCH 36.8 pg (25.7-33.7); MCHC 34.1 g/dl (32.0-36.0); MEAN CELL VOLUME 107.9 fl (80-96); MEAN PLT VOLUME 7.9 fl (7.5-11.1); MONO % 8.5 % (3.8-10.2); NEUT % 65.7 % (42.8-82.8); PLATELET COUNT 154 K/MM3 (134-434); RBC 3.05 M/mm3 (3.60-5.2); RDW 13.8 % (11.6-15.6); WHITE BLOOD COUNT 6.9 K/mm3 (4.0-10.0)
[2020-04-29] MEDS ORDERED: traMADol HCL 50 MG TABLET PO PRN (07:46)
[2020-04-29 07:50] LABS: BLOOD UREA NITROGEN 1.8 mg/dL (7-18)
[2020-04-29] MEDS ORDERED: cefTRIAXone SODIUM 1 GM VIAL ONE (09:15)
[2020-04-29] MEDS ORDERED: DEXTROSE 5%-WATER - 50 ML IVPB ONE (09:16)
[2020-04-29] MEDS: CEFTRIAXONE 1 GM in DEXTROSE 5%-WATER - 50 ML IVPB SCH (09:20)
[2020-04-29] MEDS: THIAMINE HCL 200 MG/2 ML VIAL IVPB SCH (09:25)
[2020-04-29] MEDS: PANTOPRAZOLE SODIUM 40 MG VIAL IVPUSH SCH (09:25)
[2020-04-29] MEDS: FUROSEMIDE 20 MG TABLET (FP) PO SCH (09:25)
[2020-04-29] MEDS: CYANOCOBALAMIN (VITAMIN B-12) 1000 MCG/1 ML VIAL IM SCH (09:29)
[2020-04-29 10:46] VITALS: TEMP 98.1
--- NOTE | 2020-04-29 11:59 | PN ---
Progress Note, Physician History of Present Illness: pain slightly better - Current Medication List Current Medications: Active Medications Acetaminophen (Tylenol -) 650 mg PO Q6H PRN PRN Reason: Fever Last Admin: 04/29/20 09:17 Dose: 650 mg Documented by: Cyanocobalamin (Vitamin B12 Injection -) 1,000 mcg IM DAILY [facility] Last Admin: 04/29/20 09:29 Dose: 1,000 mcg Documented by: Furosemide (Lasix -) 20 mg PO DAILY [facility] Last Admin: 04/29/20 09:25 Dose: 20 mg Documented by: Heparin Sodium (Porcine) (Heparin -) 5,000 unit SQ TID [facility] Last Admin: 04/29/20 05:37 Dose: 5,000 unit Documented by: Ceftriaxone Sodium 1 gm/ (Dextrose) 50 mls @ 100 mls/hr IVPB DAILY [facility] Last Admin: 04/29/20 09:20 Dose: 100 mls/hr Documented by: Ondansetron HCl (Zofran Injection) 4 mg IVPUSH Q6H PRN PRN Reason: NAUSEA Last Admin: 04/26/20 11:36 Dose: 4 mg Documented by: Pantoprazole Sodium (Protonix Iv) 40 mg IVPUSH DAILY [facility] Last Admin: 04/29/20 09:25 Dose: 40 mg Documented by: Polyethylene Glycol (Miralax (For Daily Use) -) 17 gm PO DAILY PRN PRN Reason: CONSTIPATION Last Admin: 04/28/20 13:10 Dose: 17 gm Documented by: Spironolactone (Aldactone -) 50 mg PO DAILY [facility] Last Admin: 04/29/20 09:25 Dose: 50 mg Documented by: Thiamine HCl (Vitamin B1 Injection -) 200 mg IVPB DAILY [facility] Last Admin: 04/29/20 09:25 Dose: 200 mg Documented by: Tramadol HCl (Ultram -) 50 mg PO DAILY PRN PRN Reason: PAIN LEVEL 6-10 Stop: 04/30/20 23:59 - Objective Vital Signs: Vital Signs Temperature 98.1 F 04/29/20 10:00 Pulse Rate 96 H 04/29/20 10:00 Respiratory Rate 20 04/29/20 10:43 Blood Pressure 120/88 04/29/20 10:00 O2 Sat by Pulse Oximetry (%) 98 04/29/20 10:43 Constitutional: Yes: No Distress, Calm Cardiovascular: Yes: S1, S2 Respiratory: Yes: Regular, CTA Bilaterally Gastrointestinal: Yes: Soft, Ascites Musculoskeletal: Yes: WNL Extremities: Yes: WNL Neurological: Yes: Alert, Oriented Psychiatric: Yes: Alert, Oriented Labs: CBC, BMP 04/29/20 06:50 04/29/20 06:50 INR, PTT INR 1.46 (0.82-1.09) H 04/26/20 07:30 Assessment/Plan hyponatremia 2. hypokalemia 3. liver cirrhosis 4. ascites 5. hx etoh abuse uti plan continue current mgmt abx fluid cx awaited rest as per the team
[2020-04-29 12:07] LABS: BODY FLUID ALBUMIN 0.5 g/dL (Not Estab.)
--- NOTE | 2020-04-29 12:52 | DS ---
Physical Exam: SUBJECTIVE: Patient seen and examined OBJECTIVE: Vital Signs Period Temp Pulse Resp BP Sys/Lincoln Pulse Ox Last 24 Hr 98.0 F-98.5 F 96-120 18-20 101-134/61-88 97-98 PHYSICAL EXAM GENERAL: Awake, alert, and fully oriented, in no acute distress. HEAD: AT/NC, Extensive dandruff noted, seborrheic dermatitis EYES: Pupils equal, round and reactive to light, sclera anicteric, conjunctiva clear. LUNGS: Breath sounds equal, clear to auscultation bilaterally. No wheezes, and no crackles. No accessory muscle use. HEART: Regular rate and rhythm, normal S1 and S2, 2/6 systolic murmur at LSB ABDOMEN: Soft, minimally tender thoughout, mod distension, no fluid wave appreciated due to guarding. spider angiomata LOWER EXTREMITIES: 2+ pulses, warm, well-perfused. No calf tenderness. No peripheral edema. NEUROLOGICAL: Cranial nerves II-XII intact. Normal speech. LABS Laboratory Results - last 24 hr 04/27/20 04/29/20 04/29/20 17:20 06:50 06:50 WBC 6.9 RBC 3.05 L Hgb 11.2 Hct 32.9 MCV 107.9 H MCH 36.8 H MCHC 34.1 RDW 13.8 Plt Count 154 MPV 7.9 Absolute Neuts (auto) 4.5 Neutrophils % 65.7 Lymphocytes % 21.9 Monocytes % 8.5 D Eosinophils % 3.2 Basophils % 0.7 Nucleated RBC % 0 Sodium 137 Potassium 3.5 Chloride 104 Carbon Dioxide 27 Anion Gap 6 L BUN 1.8 L* Creatinine 0.4 L Est GFR (CKD-EPI)AfAm 144.77 Est GFR (CKD-EPI)NonAf 124.91 Random Glucose 103 Calcium 7.8 L Phosphorus 1.6 L Magnesium 1.8 Total Bilirubin 2.4 H AST 89 H ALT 37 Alkaline Phosphatase 154 H Total Protein 5.1 L Albumin 2.1 L Fluid Glucose 122 Fluid Total Protein 1.1 Fluid Albumin 0.5 Body Fluid LDH Source 47 Fluid Amylase 14 Fluid Triglycerides 54 HOSPITAL COURSE: 45-year-old female who presented to the ED today complaining of weakness resulting in multiple falls, abdominal pain, vomiting, abdominal distention. Was found to have hepatomegaly with fatty infiltration, large abdominal ascitis, 2.8 lt adnexal mass suspected to be ruptured cyst. Paracentesis was done to remove fluids, SAAG was 1.8 indicating portal HTN as cause. She was found to have UTI and started on IV ceftriaxone then swithced to PO augmentin. SBP was ruled out. pt condition improved after paracentessis, electrolyte repleted. GI and ID consult obtained. Pt was discharged for outpatient follow up with GI and OBGYN (for the presumed ruptured cysts) Date of Admission:04/25/20 Date of Discharge: 04/29/20 Minutes to complete discharge: 35 Discharge Summary Problems reviewed: Yes Reason For Visit: ABDOMINAL ASCITES-ELVEATED LIVER ENZYMES-WEAKNESS Current Active Problems Abdominal pain (Acute) Alcoholic hepatitis with ascites (Acute) DVT prophylaxis (Acute) Hyponatremia (Acute) Tachycardia (Acute) Weakness (Acute) Condition: Improved - Instructions Diet, Activity, Other Instructions: YOUR VISIT: You were admitted to the hospital for abdominal pain, and we found that you have alcoholic hepatitis, ascitis (fluid in abdomen), along with urinary tract infection. Signals Collector/Analyst and infection disease doctor were consulted on your case. Paracentesis was done to remove fluid from your abdomen and that fluid was send for testing. Fluid anaylsis showed that the fluid is likely due to portal hypertension and liver disease. Infection of fluid was ruled out. Imaging of your abdomen showed enlarged liver with fatty infiltration, ascitis, gallbladder polyp, with 2.8cm left adnexal structure that may represent ruptured cyst. MEDICATIONS: Please START taking Augmentin 500/125 twice daily for four days, spironolactone 50mg once daily, and furosemide 20mg once daily Continue to take all other home medications as prescribed FOLLOW UPS: Please follow up with Signals Collector/Analyst in one week Please follow up with Test Fixture Designer to schedule repeat imaging and discuss imaging finding Please visit your primary care provider within 2 weeks to follow up with your labwork and hospital visit. ADDITIONAL INSTRUCTIONS: You are being discharged to your home. Please return to the Emergency department if you are experiencing worsening or concerning symptoms or call 911 Referrals: Rainer Crawford [Primary Care Provider] - Henrik Lopez MD [Staff Physician] - Disposition: HOME - Home Medications Comprehensive Discharge Medication List: Ambulatory Orders Acetaminophen [Tylenol .Regular Strength -] 650 mg PO Q6H PRN tablet 04/29/20 Amox-Tr/K Cl [Augmentin - 250Mg Tablet] 1 tab PO BID #8 tablet 04/29/20 Furosemide [Lasix -] 20 mg PO DAILY #20 tablet 04/29/20 Multivitamin 1 each PO DAILY #30 tablet 04/29/20 Spironolactone [Aldactone -] 50 mg PO DAILY 20 Days #40 tablet 04/29/20 This patient is new to me today: No Emergency Visit: Yes ED Registration Date: 04/25/20 Care time: The patient presented to the Emergency Department on the above date and was hospitalized for further evaluation of their emergent condition. Critical Care patient: No - Discharge Referral Referred to [facility] Med [facility].C.: No
[2020-04-29 15:32] VITALS: BP 120/77; PULSE 94
--- NOTE | 2020-05-02 10:52 | PATH ---
Cytology Non-Gynecological Report Patient Name: SANDRA GRIFFITHS [facility]. Rec. #: [id number] /Age/Gender: 1975 (Age: 45) / F Account: [id number] Location: [facility] Taken: 04/27/2020 Received: 04/28/2020 Reported: 05/02/2020 Physicians: Carolin Carbone M.D. Allison Michels-Pettinelli, M.D. JOSEPH NSHIEWAT Specimen(s) Received A: ABDOMINAL FLUID, RLQ B: ABDOMINAL FLUID, RLQ Clinical History Ascites Final Diagnosis A-B. ABDOMINAL FLUID, RLQ, PARACENTESIS: SATISFACTORY FOR EVALUATION. NEGATIVE FOR MALIGNANCY. FEW MESOTHELIAL CELLS AND RARE LYMPHOCYTES PRESENT. Electronically Signed Brittany Anthony M.D. Gross Description A. Approximately 22111 cc of yellow fluid received fresh. One cytofunnel prepared and Pap stained. One cellblock prepared. B. Approximately 50 cc of yellow fluid received fixed in 50% alcohol. One cytofunnel prepared and Pap stained. One cellblock prepared.
== END 2020-04-29 15:39 | disposition home or self-care (01) | DRG 433 ==
LOC: FER 11:58 → FM/S 15:07 → J4S 04-26 16:39
PROVIDERS: ATTEND Student in an Organized Health Care Education/Training Program
PROC: 0W9G3ZX Drainage of Peritoneal Cavity, Percutaneous Approach, Diagnostic (ICD-10-PCS; principal; 2020-04-27)
DX: K70.11 Alcoholic hepatitis with ascites (principal); E87.1 Hypo-osmolality and hyponatremia; N39.0 Urinary tract infection, site not specified; K76.6 Portal hypertension; K86.1 Other chronic pancreatitis; R10.9 Unspecified abdominal pain; R00.0 Tachycardia, unspecified; R53.1 Weakness; K76.0 Fatty (change of) liver, not elsewhere classified; E87.6 Hypokalemia; K82.4 Cholesterolosis of gallbladder
CPT/HCPCS: 36415; 71045-TC-FY; 74177-TC; 76830-TC; 76856-TC; 76942-TC; 80048; 80053; 80074; 80076; 80307; 81003; 81015; 82042; 82150; 82436; 82465; 82550; 82607; 82803; 82945; 83540; 83605; 83615; 83690; 83735; 83986; 84100; 84133; 84157; 84300; 84478; 84484; 84703; 85025; 85027; 85610; 85730; 86708; 87070; 87075; 87086; 87102; 87116; 87186; 87205; 87206; 87210; 88108; 88305-TC; 93005; 93306-TC; 97116-GP; 97162-GP; 99285-25; J1644; Q9967; U0003

== ENCOUNTER 2020-06-12 15:08 | Inpatient (IN) | payer OTHER ==
[2020-06-12 16:27] LABS: BASO % 1.2 % (0-2.0); HEMATOCRIT 38.3 % (32.4-45.2); HEMOGLOBIN 12.6 GM/dL (10.7-15.3); MCH 31.1 pg (25.7-33.7); MEAN CELL VOLUME 94.2 fl (80-96); MEAN PLT VOLUME 7.7 fl (7.5-11.1); MONO % 10.3 % (3.8-10.2); NEUT % 62.5 % (42.8-82.8); PLATELET COUNT 334 K/MM3 (134-434); RBC 4.06 M/mm3 (3.60-5.2); WHITE BLOOD COUNT 7.3 K/mm3 (4.0-10.0)
[2020-06-12 16:33] LABS: INR 1.36 (0.83-1.09); PROTHROMBIN TIME (PATIENT) 16.3 SEC (9.7-13.0)
[2020-06-12 16:51] LABS: POTASSIUM 3.6 mmol/L (3.5-5.1)
[2020-06-12 16:54] LABS: ALBUMIN 2.2 g/dl (3.4-5.0); BLOOD UREA NITROGEN 4.8 mg/dL (7-18)
[2020-06-12 16:57] LABS: CREATININE 0.6 mg/dL (0.55-1.3)
[2020-06-12 16:58] LABS: BILIRUBIN,TOTAL 1.7 mg/dL (0.2-1)
[2020-06-12 16:59] LABS: TOT PROT 6.6 g/dl (6.4-8.2)
[2020-06-12] MEDS ORDERED: LIDOCAINE 1%/EPI 1:100000 (50 ML MULTI DOSE VIAL) PNB ONE (17:01)
[2020-06-12] MEDS ORDERED: LIDOCAINE 1%/EPI 1:100000 (20 ML MULTI DOSE VIAL) ONE (17:12)
[2020-06-12] MEDS ORDERED: CEFTRIAXONE 1,000 MG in DEXTROSE 5%-WATER - 50 ML IVPB ONE (20:02)
[2020-06-12] MEDS ORDERED: CEFTRIAXONE 1 GM/50 ML BAG ONE (20:05)
[2020-06-12 21:37] LABS: BF WBC & OTHER NUCLEATED CELLS 61 /mm3
[2020-06-12 22:35] LABS: BODY FLUID MONOCYTE 28 %
[2020-06-13 06:12] LABS: EPI CELLS >36 /uL (0-25.1); HYALINE CASTS 42 /uL (0-3.1); URINE APPEARANCE TURBID; URINE BILIRUBIN 2+ (NEGATIVE); URINE COLOR DK YELLOW; URINE GLUCOSE (UA) NEGATIVE (NEGATIVE); URINE KETONE NEGATIVE (NEGATIVE); URINE LEUK ESTERASE TRACE (NEGATIVE); URINE NITRITE POSITIVE (NEGATIVE); URINE PROTEIN NEGATIVE (NEGATIVE); URINE WBC 75 /uL (0-25.8)
[2020-06-13 06:23] LABS: HEMATOCRIT 37.5 % (32.4-45.2); HEMOGLOBIN 12.5 GM/dL (10.7-15.3); LYMPH % 32.3 % (8-40); MCH 31.7 pg (25.7-33.7); MCHC 33.4 g/dl (32.0-36.0); MEAN PLT VOLUME 7.9 fl (7.5-11.1); MONO % 9.8 % (3.8-10.2); NEUT % 52.9 % (42.8-82.8); PLATELET COUNT 312 K/MM3 (134-434); RBC 3.95 M/mm3 (3.60-5.2); RDW 14.2 % (11.6-15.6); WHITE BLOOD COUNT 7.4 K/mm3 (4.0-10.0)
[2020-06-13 06:34] LABS: INR 1.32 (0.83-1.09); PROTHROMBIN TIME (PATIENT) 15.8 SEC (9.7-13.0)
[2020-06-13 06:36] LABS: ACTIVATED PTT 33.1 SECONDS (25.2-36.5)
[2020-06-13 06:56] LABS: POTASSIUM 3.3 mmol/L (3.5-5.1)
[2020-06-13 06:58] LABS: ALBUMIN 1.9 g/dl (3.4-5.0); BLOOD UREA NITROGEN 4.5 mg/dL (7-18); CALCIUM 8.6 mg/dL (8.5-10.1)
[2020-06-13 07:01] LABS: CREATININE 0.4 mg/dL (0.55-1.3); PHOSPHOROUS 3.8 mg/dL (2.5-4.9)
[2020-06-13 07:03] LABS: BILIRUBIN,TOTAL 1.4 mg/dL (0.2-1); TOT PROT 5.8 g/dl (6.4-8.2)
[2020-06-13] MEDS ORDERED: SPIRONOLACTONE 25 MG TABLET PO SCH (10:00)
[2020-06-13] MEDS ORDERED: FUROSEMIDE 20 MG TABLET (FP) PO SCH (10:00)
[2020-06-13] MEDS ORDERED: SPIRONOLACTONE 25 MG TABLET ONE (12:23)
[2020-06-13] MEDS ORDERED: MULTIVITAMINS (DAILY MVI) TABLET (FP) ONE (12:23)
[2020-06-13] MEDS: MULTIVITAMINS (DAILY MVI) TABLET (FP) PO SCH (12:31)
[2020-06-13] MEDS: ALBUMIN HUMAN 25% 12.5 GM/50 ML VIAL IVPB SCH ×4 (12:56→15:13)
[2020-06-13 13:55] LABS: BF WBC & OTHER NUCLEATED CELLS 124 /mm3
[2020-06-13 15:13] LABS: BODY FLUID MACROPHAGES 40 %; BODY FLUID MESOTHELIAL 6 %; BODY FLUID MONOCYTE 4 %
[2020-06-13] MEDS ORDERED: PNEUMOC 13-VAL CONJ-DIP CRM/PF 0.5 ML DISP.SYRIN IM ONE (17:35)
[2020-06-13 17:50] VITALS: BMI 17.2
[2020-06-13] MEDS ORDERED: PNEUMOCOCCAL 23 VACCINE 0.5 ML VIAL IM ONE (20:00)
[2020-06-14 08:42] LABS: POTASSIUM 3.6 mmol/L (3.5-5.1)
[2020-06-14 08:44] LABS: HEMATOCRIT 33.2 % (32.4-45.2); HEMOGLOBIN 10.9 GM/dL (10.7-15.3); MCH 31.2 pg (25.7-33.7); MCHC 32.8 g/dl (32.0-36.0); MEAN PLT VOLUME 7.9 fl (7.5-11.1); PLATELET COUNT 240 K/MM3 (134-434); RBC 3.49 M/mm3 (3.60-5.2); RDW 13.8 % (11.6-15.6); WHITE BLOOD COUNT 6.1 K/mm3 (4.0-10.0)
[2020-06-14 08:56] LABS: BILIRUBIN,TOTAL 0.8 mg/dL (0.2-1)
[2020-06-14 08:57] LABS: TOT PROT 4.9 g/dl (6.4-8.2)
[2020-06-14 08:58] LABS: CALCIUM 8.3 mg/dL (8.5-10.1); CREATININE 0.4 mg/dL (0.55-1.3)
[2020-06-14 09:01] LABS: MAGNESIUM 2.3 mg/dL (1.8-2.4)
[2020-06-14 09:02] LABS: PHOSPHOROUS 2.8 mg/dL (2.5-4.9)
[2020-06-14] MEDS ORDERED: SPIRONOLACTONE 25 MG TABLET PO SCH (10:00)
[2020-06-14] MEDS ORDERED: FUROSEMIDE 40 MG TABLET (FP) PO SCH (10:00)
[2020-06-14] MEDS: MULTIVITAMINS (DAILY MVI) TABLET (FP) PO SCH (10:17)
[2020-06-14 13:08] LABS: BODY FLUID ALBUMIN 0.3 g/dL (Not Estab.)
[2020-06-14 13:08] LABS: BODY FLUID ALBUMIN 0.2 g/dL (Not Estab.)
[2020-06-14 15:07] VITALS: BP 108/78; PULSE 110; TEMP 98.7
== END 2020-06-14 16:41 | disposition home or self-care (01) | DRG 433 ==
LOC: JER 15:08 → JERBED 19:24 → J5S 06-13 16:54
PROVIDERS: ADMIT Hospitalist; ATTEND Internal Medicine
PROC: 0W9G3ZX Drainage of Peritoneal Cavity, Percutaneous Approach, Diagnostic (ICD-10-PCS; principal; 2020-06-13)
DX: K70.31 Alcoholic cirrhosis of liver with ascites (principal); E87.1 Hypo-osmolality and hyponatremia; R00.0 Tachycardia, unspecified; I10 Essential (primary) hypertension; E87.6 Hypokalemia; F10.10 Alcohol abuse, uncomplicated
CPT/HCPCS: 36415; 76942-TC; 80053; 81003; 82042; 82140; 82150; 82465; 82945; 83615; 83690; 83735; 83986; 84100; 84157; 84478; 85025; 85027; 85610; 85730; 87070; 87075; 87102; 87116; 87205; 87206; 87210; 88108; 88305-TC; 90732; 93005; 93010; 99285-25; C9803; G0009; P9047; U0003